=== PATIENT | male | born 1960 | race Caucasian/White ===

== ENCOUNTER → 2025-06-21 07:53 | Outpatient (REF) | payer OTHER, SELFPAY | LOC: RAD 07:53 | PROVIDERS: ATTENDING PHYSICIAN Family Medicine | DX: Z85.72 Personal history of non-Hodgkin lymphomas (principal); R10.9 Unspecified abdominal pain | CPT/HCPCS: 74177; Q9967 ==

== ENCOUNTER 2025-06-22 12:42 | Inpatient (IN) | payer OTHER, SELFPAY ==
[2025-06-22 10:05] VITALS: BP 160/79
--- NOTE | 2025-06-22 11:12 | ED.GENMED ---
History of Present Illness
<Genia Sharma PA-C - Last Filed: 06/22/25 14:20>
General
Chief Complaint: Abdominal Pain
Source: patient
Exam Limitations: none
Time Seen by Provider: 06/22/25 10:53
Nursing documentation reviewed up to this point in time: agreed with
History of Present Illness
History of Present Illness:
Patient is a 64-year-old male who presents to the emergency department with abnormal CT scan following 2 weeks of abdominal pain. Patient states he initially began with vague abdominal pain as well as low-grade fevers a few weeks ago. He was seen
by his primary care physician at that time and started on a 10-day course of amoxicillin, which he completed yesterday. Symptoms for the most part have improved however he does still have some vague abdominal discomfort.
Given persistent pain�his primary care ordered a CT scan of his abdomen which revealed diverticulitis and abscess. He was sent to the emergency department for further evaluation.
Patient denies any recent fevers. He still has some mild discomfort across his lower abdomen. He has not had any nausea, vomiting, diarrhea. No urinary symptoms.
No drug allergies.
Review of Systems
<Genia Sharma PA-C - Last Filed: 06/22/25 14:20>
Review of Systems
Allergies reviewed?: Yes
All Other Systems: ROS reviewed and negative except as documented in HPI and ROS
Phy Exam
<Genia Sharma PA-C - Last Filed: 06/22/25 14:20>
Physical Exam
Physical Exam:
Vitals: Hypertensive vital signs stable. Afebrile
General: Patient is well appearing, no acute distress
Skin: Warm and dry, no rashes or lesions
Head: Normocephalic, atraumatic
Eyes: Sclera nonicteric.
Throat: Protecting airway
Neck: Normal ROM, no cervical spine tenderness, no meningismus
Cardiac: Regular rate and rhythm, no murmurs.
Pulm: Normal respiratory effort, no wheezes, rales, rhonchi heard on exam
.
Abdomen: Abdomen soft. Mild tenderness across lower abdomen. No rebound tenderness or guarding
Extremities: No evidence of cyanosis or edema
Neuro: AAOx3. Grossly intact.
Psychiatric: Normal affect.
Course
<Genia Sharma PA-C - Last Filed: 06/22/25 14:20>
Orders/Labs/Results
Orders:
Orders
06/22/25 11:25
Complete Blood Count/With Diff Urgent
Comprehensive Metabolic Panel Urgent
Lactic Acid Q4H
Comment: CANCEL 2nd LACTIC ACID IF 1st LACTIC ACID IS LESS THAN 2
06/22/25 11:50
Piperacillin/Tazo 3.375 Gram [Zosyn] 3.375 gram in 50 ml IV NOW
06/22/25 12:26
Admit/Transfer Patient As Directed
Co-Sign Provider:
Level of Care: Inpatient admission
Assign to:: Medical/Surgical
Physician / Group: htay
Diagnosis: Acute diverticulitis of sigmoid colon complicated by small abscess.
Reason for Hospitalization: Acute diverticulitis of sigmoid colon complicated by small abscess.
Expected length of stay greater than two midnights?: Yes
ELOS- Estimated Length of Stay in days: 3
I certify the patient meets the requirements for IP care: Yes
06/22/25 12:27
Code Status As Directed
Resuscitation Status: Full Code
Abnormal Lab Results
06/22/25
11:25
RBC 4.35 L 10^6/uL
(4.70-6.10)
Hgb 12.9 L g/dL
(13.0-18.0)
Hct 38.4 L %
(39.0-52.0)
Abs Immat Gran (auto) 0.1 H 10^3/uL
(0-0.05)
Absolute Neuts (auto) 8.4 H 10^3/uL
(1.4-6.5)
Absolute Lymphs (auto) 1.1 L 10^3/uL
(1.2-3.4)
Absolute Monos (auto) 0.8 H 10^3/uL
(0.1-0.6)
Neutrophils % 79.9 H %
(42.2-75.2)
Lymphocytes % 10.5 L %
(20.5-51.1)
Lactic Acid 0.6 L mmol/L
(0.7-2.0)
06/22/25 11:25
06/22/25 11:25
Vital Signs
Initial and Last Documented VS:
Initial Vital Signs
Temp Pulse Resp BP Pulse Ox
99.0 F 82 16 160/79 98
06/22/25 10:05 06/22/25 10:05 06/22/25 10:05 06/22/25 10:05 06/22/25 10:05
Last Documented Vital Signs
Temp Pulse Resp BP Pulse Ox
99.0 F 82 16 133/66 99
06/22/25 10:05 06/22/25 10:05 06/22/25 10:05 06/22/25 13:00 06/22/25 13:15
Xavierlt;Truong Peguero, DO - Last Filed: 06/22/25 12:55>
Orders/Labs/Results
Orders:
Orders
06/22/25 11:25
Complete Blood Count/With Diff Urgent
Comprehensive Metabolic Panel Urgent
Lactic Acid Q4H
Comment: CANCEL 2nd LACTIC ACID IF 1st LACTIC ACID IS LESS THAN 2
06/22/25 11:50
Piperacillin/Tazo 3.375 Gram [Zosyn] 3.375 gram in 50 ml IV NOW
06/22/25 12:26
Admit/Transfer Patient As Directed
Co-Sign Provider:
Level of Care: Inpatient admission
Assign to:: Medical/Surgical
Physician / Group: htay
Diagnosis: Acute diverticulitis of sigmoid colon complicated by small abscess.
Reason for Hospitalization: Acute diverticulitis of sigmoid colon complicated by small abscess.
Expected length of stay greater than two midnights?: Yes
ELOS- Estimated Length of Stay in days: 3
I certify the patient meets the requirements for IP care: Yes
06/22/25 12:27
Code Status As Directed
Resuscitation Status: Full Code
Abnormal Lab Results
06/22/25
11:25
RBC 4.35 L 10^6/uL
(4.70-6.10)
Hgb 12.9 L g/dL
(13.0-18.0)
Hct 38.4 L %
(39.0-52.0)
Abs Immat Gran (auto) 0.1 H 10^3/uL
(0-0.05)
Absolute Neuts (auto) 8.4 H 10^3/uL
(1.4-6.5)
Absolute Lymphs (auto) 1.1 L 10^3/uL
(1.2-3.4)
Absolute Monos (auto) 0.8 H 10^3/uL
(0.1-0.6)
Neutrophils % 79.9 H %
(42.2-75.2)
Lymphocytes % 10.5 L %
(20.5-51.1)
Lactic Acid 0.6 L mmol/L
(0.7-2.0)
06/22/25 11:25
06/22/25 11:25
Vital Signs
Initial and Last Documented VS:
Initial Vital Signs
Temp Pulse Resp BP Pulse Ox
99.0 F 82 16 160/79 98
06/22/25 10:05 06/22/25 10:05 06/22/25 10:05 06/22/25 10:05 06/22/25 10:05
Last Documented Vital Signs
Temp Pulse Resp BP Pulse Ox
99.0 F 82 16 133/66 99
06/22/25 10:05 06/22/25 10:05 06/22/25 10:05 06/22/25 13:00 06/22/25 13:15
<Genia Sharma PA-C - Last Filed: 06/22/25 14:20>
MDM/Problems Addressed
Differential Diagnosis Includes:
Not limited to: Acute diverticulitis, bowel perforation, intra-abdominal abscess, etc.
MDM/Problems Addressed:
64-year-old male with acute sigmoid diverticulitis complicated by small abscess. Patient with approximately 2 weeks of lower abdominal discomfort s/p 10-day course of oral amoxicillin. Patient with persistent mild abdominal pain, no associated
fever or vomiting. Patient has stable vital signs and is afebrile on arrival to ED. Patient overall very well-appearing, nontoxic.
Labs obtained in ED without acute findings. No leukocytosis. Chemistry unremarkable. Lactic acid normal.
I did review CT scan which was performed outpatient yesterday which reveals acute diverticulitis of sigmoid colon complicated by small abscess that is not amenable to drainage. Given evidence of acute complicated diverticulitis not responding to
oral antibiotics outpatient�patient will require admission for IV antibiotics. Zosyn given in ED. Patient accepted to hospital service in stable condition. Colorectal surgery aware.
Chronic conditions affecting care:
N/A
Acute Exacerbation and/or Progression of Chronic Illness:
N/A
<Genia Sharma PA-C - Last Filed: 06/22/25 14:20>
*Pulse Oximetry
SaO2: 98
Oxygen Mode of Delivery: Room air
Patient hypoxic: no
*EKG
Interpreted by ED Provider?: NA
*Chest Pain Coordinator Interpretation
Rate: Chest Pain Coordinator- N/A
*Critical Care Note
Total Time (30-74mins, 75-104mins- exclusive of procedures): Not Applicable
Data Reviewed
Review of Other/Old Records Reveals: Radiology Studies (Outpatient CT abdomen/pelvis which reveals sigmoid diverticulitis complicated by small abscess)
<Genia Sharma PA-C - Last Filed: 06/22/25 14:20>
Patient Management
Discussion with other providers: Hospitalist and [facility] Examiner (Case discussed w/ colorectal surgery)
Escalation/DeEscalation of care consider admission/obs:
Admit for IV abx
ED Attending Note
<Genia Sharma PA-C - Last Filed: 06/22/25 14:20>
-
Portions of this chart may have been created with voice recognition software.� Occasional wrong word or��sound alike� substitutions may have occurred due to the inherent limitations of voice recognition software.
<Truong Peguero DO - Last Filed: 06/22/25 12:55>
ED Attending Note
Patient seen and examined by attending physician: Yes
ED Attending Note:
I reviewed and agree with history and treatment plan by Genia Sharma PA-C. My exam revealed 63-year-old male in no acute distress, afebrile. CT abdomen pelvis showing sigmoid diverticulitis with small abscess not amenable to drainage. IV
Zosyn given. Admit to hospitalist.
Discharge Plan
Departure
Patient Disposition: Admit
Date of Disposition: 06/22/25
Time of Disposition: 12:04
Presentation/result/management discussed w/ accepting MD/DO: Hospitalist
Discharge Problem:
Diverticulitis of intestine with abscess
Interventions
Interventions:
*Risk Screen - Suicide Last Done: 06/22/25 10:05
*General Assessment Last Done: 06/22/25 11:37
*Neglect/Abuse Screening Last Done: 06/22/25 10:05
*ED- Fall Risk Assessment Last Done: 06/22/25 11:37
*ED COVID-19 Vaccine History Last Done: 06/22/25 11:05
BR-Cwilyj-Ptwbwclbea Assessment Last Done: 06/22/25 11:37
[2025-06-22 11:29] VITALS: BMI 29.6
[2025-06-22 11:33] LABS: Hematocrit 38.4 % (39.0-52.0); Hemoglobin 12.9 g/dL (13.0-18.0); Mean Corp Hgb Conc. 33.6 g/dL (33.0-37.0); Mean Corpuscular Volume 88.3 fL (80.0-94.0); Nucleated Red Blood Cells % 0 % (-); Platelet Count 345 10^3/uL (130-400); Red Cell Dist. Width 12.8 % (11.5-14.5)
[2025-06-22 12:00] VITALS: BP 142/72
[2025-06-22 12:01] LABS: ALT (SGPT) 18 U/L (0-50); AST (SGOT) 25 U/L (17-59); Albumin 3.8 g/dl (3.5-5.0); Alkaline Phosphatase 58 U/L (38-126); Blood Urea Nitrogen 14 mg/dl (9-20); Calcium 9.1 mg/dl (8.4-10.2); Carbon Dioxide 27 mmol/L (22-30); Chloride 104 mmol/L (98-107); Estimated Creatinine Clearance 75 ml/min; Glucose 98 mg/dl (70-99); Potassium 4.5 mmol/L (3.5-5.1); Sodium 136 mmol/L (135-145); Total Protein 7.0 g/dl (6.3-8.2); eGFR > 60.00
[2025-06-22] MEDS: ZOSYN 50 IV ×2 (12:10→17:44)
--- NOTE | 2025-06-22 12:13 | HPS.HSE ---
Family Physician
-
Family Physician: Ladarius Mae
Chief Complaint
-
abnormal OP abdominal CT
History of Present Illness
HPI
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
- somewhat vague abdominal pain as well as low-grade fevers a few weeks ago.
- seen by his primary care physician at that time and started on a 10-day course of amoxicillin, which he completed yesterday. - - Symptoms for the most part have improved however he does still have some vague abdominal discomfort.
- primary care ordered a CT scan of his abdomen/pelvis which resulted today showing possible evidence of abscess and he was sent to the emergency department for further evaluation.
ROS
- denies any recent fevers.
- not had any nausea, vomiting, diarrhea.
Medical History
Past Medical History
Past Medical History: Reports None and Cancer (Remote HX NHL, s/p chemo and XRT at [place] - free status for 13 yrs )
Past Surgical History: Reports None
Social History
Tobacco: Non-smoker
Alcohol: None
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
Family History
Family History: Other (Diverticulitis in parents and siblings )
Allergies / Home Medications
Allergies reflects when Allergies were last updated in [employer].
Home Medications with original date entered in [employer]
Allergy/Medication List:
Not on any prescription meds
If medication reconciliation has not been performed, why?: Medication List N/A
Review of Systems
-
Constitutional: Reports No Symptoms
EENT: Reports No Symptoms
Respiratory: Reports No Symptoms
Cardiac: Reports No Symptoms
Abdomen/GI: Reports See HPI and Abdominal Pain; Denies Nausea, Vomiting or Diarrhea
: Reports No Symptoms
Musculoskeletal: Reports No Symptoms
Skin: Reports No Symptoms
Neurological: Reports No Symptoms
Endocrine: Reports No Symptoms
Hematologic/Lymphatic: Reports No Symptoms
Psych: Reports No Symptoms
Physical Exam
Vital Signs
Vital Signs
Temp Pulse Resp BP Pulse Ox
99.0 F 82 16 160/79 97
06/22/25 10:05 06/22/25 10:05 06/22/25 10:05 06/22/25 10:06/22/25 11:37
Physical Exam
General: Well Developed, Well Nourished and No Apparent Distress
HEENT: NormoCephalic, Moist mucous membranes and Atraumatic
Respiratory: Clear
Cardiac: S1/S2 and Regular Rhythm; No Murmur or Rub
GI: Soft, Non Distended, Normal Bowel Sounds and Tender (soft. Mild tenderness across lower abdomen. No rebound tenderness or guarding); No Organomegaly
Rectal: Deferred by Provider
Musculoskeletal: No Clubbing, No Cyanosis and No Edema
Skin: No Rash
Neuro: Nonfocal/grossly intact
Laboratory Results
-
06/22/25 11:25
06/22/25 11:25
Laboratory Results
Lactic Acid Cancelled 06/22/25 15:15
Total Bilirubin 0.5 mg/dl (0.2-1.3) 06/22/25 11:25
AST 25 U/L (17-59) 06/22/25 11:25
ALT 18 U/L (0-50) 06/22/25 11:25
Alkaline Phosphatase 58 U/L (38-126) 06/22/25 11:25
Data Reviewed
-
CT Scan: Report Reviewed by me
Lab Data: Labs Reviewed by me
Impression/Plan
-
Vital Signs
Temp Pulse Resp BP Pulse Ox
99.0 F 82 16 160/79 97
06/22/25 10:05 06/22/25 10:05 06/22/25 10:05 06/22/25 10:05 06/22/25 11:37
Relevant Data
06/22/25
11:25
WBC 10.4
Hgb 12.9 L
Plt Count 345
Creatinine 1.1
eGFR > 60.00
Lactic Acid 0.[address] Abd/pel W Iv And Oral Contr
1. Findings compatible with acute diverticulitis within the sigmoid colon, complicated by development of a small abscess measuring approximately 3.5 x 2.4 x 4.3 cm. This collection is not amenable to percutaneous drainage.
2. Additional findings above.
No prior DH or hospitalist admission:
ASSESSMENT & PLAN
Complicated acute diverticulitis of sigmoid colon complicated by small abscess - first episode
- Failed OP PO Augmentin for 10 days - completed yesterday
- Outpatient CT performed yesterday
- VSS, afebrile.
- Unremarkable LA
- NPO and IVF
- Empiric IV Zosyn
- PRN analgesia and antiemetics
- Consulted Colorectal, Dr. Pan by ER attd
Remote HX NHL, s/p chemo and XRT @ [place]
- free status for 13 yrs
DVT Px: SCD
Code: Full
IP MS
[2025-06-22 13:00] VITALS: BP 133/66
[2025-06-22 14:22] VITALS: BP 142/67; BMI 29.1
[2025-06-22] MEDS: NSS 1000 IV (15:01)
--- NOTE | 2025-06-22 16:06 | CM ---
CM met with pt and spouse bedside
They reside at [address] [place] [address] Dr chu France- address corrected with admission
2SH with 2STE full flight to 2nd floor
Pt is independent with his ADLs, denies use of DMEs
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
Denies financial insecurities
PCP- Jarvis Li
Rx- Nerissa
Discharge Disposition- anticipate home, no needs
[2025-06-22 16:21] VITALS: BP 152/76
[2025-06-22 23:00] VITALS: BP 152/70
[2025-06-23] MEDS: ZOSYN 50 IV ×5 (00:06→22:56)
[2025-06-23] MEDS: NSS 1000 IV ×2 (04:16→17:35)
[2025-06-23 07:02] LABS: Hematocrit 38.6 % (39.0-52.0); Hemoglobin 13.3 g/dL (13.0-18.0); Mean Corp Hgb Conc. 34.5 g/dL (33.0-37.0); Mean Corpuscular Volume 88.9 fL (80.0-94.0); Platelet Count 332 10^3/uL (130-400); Red Cell Dist. Width 12.8 % (11.5-14.5)
[2025-06-23 07:23] LABS: Blood Urea Nitrogen 13 mg/dl (9-20); Calcium 8.8 mg/dl (8.4-10.2); Carbon Dioxide 26 mmol/L (22-30); Chloride 106 mmol/L (98-107); Estimated Creatinine Clearance 92 ml/min; Glucose 89 mg/dl (70-99); Potassium 4.3 mmol/L (3.5-5.1); Sodium 137 mmol/L (135-145); eGFR > 60.00
[2025-06-23 08:15] VITALS: BP 148/77
[2025-06-23] MEDS: TYLENOL 1000 MG PO ×2 (11:43→22:55)
--- NOTE | 2025-06-23 13:06 | W.PN.HOSP.TC ---
Today's Communication/Plan
-
adv to [facility]D
abx
Await surg recs
Assessment / Plan
Assessment / Plan
Physical Exam
General: Well Developed, Well Nourished and No Apparent Distress
HEENT: NormoCephalic, Moist mucous membranes and Atraumatic
Respiratory: Clear
Cardiac: S1/S2 and Regular Rhythm; No Murmur or Rub
GI: Soft, Non Distended, Normal Bowel Sounds and nontender; No rebound tenderness or guarding); No Organomegaly
Rectal: Deferred by Provider
Musculoskeletal: No Clubbing, No Cyanosis and No Edema
Skin: No Rash
Neuro: Nonfocal/grossly intact
ASSESSMENT & PLAN
Complicated acute diverticulitis of sigmoid colon complicated by small abscess - first episode
-As per CT not amenable to drainage
- Failed OP PO Augmentin for 10 days - completed yesterday
- VSS, afebrile.
- IVF
- As asymptomatic - adv to CLD
- Empiric IV Zosyn
- PRN analgesia and antiemetics
- Consulted Colorectal, Dr. Pan by ER attd - await recs although anticipate medical management
Remote HX NHL, s/p chemo and XRT @ [place]
- disease free status for 13 yrs
DVT Px: SCD
Code: Full
Anticipated Discharge: 24 - 48 hours
Subjective/Interval History
-
Date of Service: June 23, 2025
Patient has no abdominal pain, hungry
Objective Data
-
Labs:
Laboratory Results
06/23/25
06:08
WBC 8.4
Hgb 13.3
Hct 38.6 L
Plt Count 332
Sodium 137
Potassium 4.3
Chloride 106
Carbon Dioxide 26
BUN 13
Creatinine 0.9
Glucose 89
Calcium 8.8
Vital Signs:
Vital Signs
Temp Pulse Resp BP Pulse Ox
97.8 F 62 16 148/77 98
06/23/25 08:15 06/23/25 08:15 06/23/25 08:15 06/23/25 08:15 06/23/25 08:15
I&O
06/22/25 06/23/25 06/24/25
06:59 06:59 06:59
Intake Total 1080 / 1080
Balance 1080 / 1080
Review of Systems
-
History Source: Patient
All other systems: Not reviewed unless documented
Data Reviewed
-
CT Scan: Report Reviewed by me
Labs: Labs Reviewed by me
--- NOTE | 2025-06-23 15:15 | CON.CRS ---
Addendum entered and electronically signed by Jose G Pan MD 06/23/25 18:18:
I saw and examined the patient.
The High School Science Tutor's note was reviewed and I agree with the note.
Comment: Pain free, benign exam, CT with pericolonic abscess at distal sigmoid, plan for IV abx, cld for now
Addendum entered and electronically signed by REGAN Moran 06/23/25 15:27:
-
Original Note:
Consultation
-
Date/Time Consultation Performed: 06/23/25 1430
Medical History
-
Chief Complaint: abnormal outpatient imaging
History of Present Illness:
This is a 64 yo male with a h/o HS NHL s/p chemo and xrt remotely who was recently treated with a 10 day course of augmenting for diverticulitis by his PCP which he completed on 06/21/25. He continued with some vague abdominal discomfort and
outpatient Ct imaging was obtained which demonstrated sigmoid diverticulitis complicated by abscess formation. He was called by his doctor and it was recommended he present through the ED which he did yesterday. He was started on IV abx and kept NPO
for bowel rest until lunch time today when he was initiated on clears. He notes no current abdominal pain and is nontender on exam. He denies fevers or chills. His last colonoscopy was in 2019 with purulent discharge noted from a diverticula at that
time for which he was treated with Levaquin/Flagyl. He had a polypectomy and reports he is due for colonoscopy this year.
Past Medical History
Past Medical History: Cancer (HS NHL s/p chemo/xrt ) and Diverticulitis
Past Surgical History: None
Social History
Tobacco: Non-Smoker
Alcohol: None
Personal:
Living: With Family
Family History
Family History: Reviewed & Not Pertinent
Allergies / Home Medications
Allergy/AdvReac Type Severity Reaction Status Date / Time
No Known Allergies Allergy Verified 06/22/25 10:10
Review of Systems
-
History Source: Patient and Family
All other systems: Negative unless noted
A 10 point review of systems was completed, and was negative except as per HPI.
Physical Exam
Vital Signs
Temp 97.8 F 06/23/25 08:15
Pulse 62 06/23/25 08:15
Resp Rate 16 06/23/25 08:15
Blood pressure 148/77 06/23/25 08:15
SaO2 98 06/23/25 08:15
06/22/25 06/23/25 06/24/25
06:59 06:59 06:59
Actual Weight 97.386 kg
Body Mass Index (BMI) 29.1
Lab Results / Allergies
06/23/25 06:08
06/23/25 06:08
WBC 8.4 10^3/uL (4.8-10.8) 06/23/25 06:08
Hgb 13.3 g/dL (13.0-18.0) 06/23/25 06:08
Hct 38.6 % (39.0-52.0) L 06/23/25 06:08
Plt Count 332 10^3/uL (130-400) 06/23/25 06:08
Abs Immat Gran (auto) 0.1 10^3/uL (0-0.05) H 06/22/25 11:25
Neutrophils % 79.9 % (42.2-75.2) H 06/22/25 11:25
Allergy/AdvReac Type Severity Reaction Status Date / Time
No Known Allergies Allergy Verified 06/22/25 10:10
Physical Exam
General: Well Developed and Well Nourished
HEENT: Normocephalic and Moist Mucous Membranes
Respiratory: Clear and Non Labored Respirations
GI: Soft, Non Tender and Non Distended
Neuro: Awake, Alert and AO x 3
Psych: Calm
Data Reviewed
-
CT Scan: Image Personally Visualized and interpreted, Report Reviewed by me, Discussed with Physician, Discussed with Nurse, Discussed with Patient and Discussed with Family
Labs: Labs Reviewed by me, Discussed with Physician, Discussed with Nurse, Discussed with Patient and Discussed with Family
Old Records: Reviewed
Assessment / Plan
-
64 yo male with h/o colonoscopy in 2019, treated with abx after study d/t purulence from diverticular pocket noted during the procedure who is s/p oral abx therapy [id number] as an op for diverticulitis who presents for acute sigmoid diverticulitis
with 3.5 x 2.4 x 4.3 cm abscess along the superior and posterior to the sigmoid noted on outpatient follow up imaging as pain persisted after abx. He has no leukocytosis or fevers. He has no active pain or tenderness. VSS.
Plan:
Ok for clear liquids
Continue IV ABX
Will add on CRP to today's labs and trend
Abscess location not amenable to IR drainage given location
Will need op follow up colonoscopy after resolution of this episode
Medical management as per primary team
No plans for emergent surgery at this time, will follow for continued improvement with abx and supportive measures
[2025-06-23 15:56] LABS: C-Reactive Protein 49.00 mg/L (0.0-10.00)
[2025-06-23 16:05] VITALS: BP 139/79
[2025-06-23 23:00] VITALS: BP 150/76
[2025-06-24] MEDS: ZOSYN 50 IV ×2 (05:19→11:55)
[2025-06-24] MEDS: NSS 1000 IV (05:20)
[2025-06-24 07:11] LABS: Hematocrit 41.0 % (39.0-52.0); Hemoglobin 14.0 g/dL (13.0-18.0); Mean Corp Hgb Conc. 34.1 g/dL (33.0-37.0); Mean Corpuscular Volume 89.1 fL (80.0-94.0); Platelet Count 350 10^3/uL (130-400); Red Cell Dist. Width 12.8 % (11.5-14.5)
[2025-06-24 07:30] LABS: ALT (SGPT) 15 U/L (0-50); AST (SGOT) 24 U/L (17-59); Albumin 3.6 g/dl (3.5-5.0); Alkaline Phosphatase 59 U/L (38-126); Blood Urea Nitrogen 11 mg/dl (9-20); Calcium 9.0 mg/dl (8.4-10.2); Carbon Dioxide 25 mmol/L (22-30); Chloride 106 mmol/L (98-107); Estimated Creatinine Clearance 83 ml/min; Glucose 90 mg/dl (70-99); Potassium 4.5 mmol/L (3.5-5.1); Sodium 138 mmol/L (135-145); Total Protein 6.8 g/dl (6.3-8.2); eGFR > 60.00
[2025-06-24 07:32] VITALS: BP 156/83
[2025-06-24 07:34] LABS: C-Reactive Protein 39.60 mg/L (0.0-10.00)
--- NOTE | 2025-06-24 10:43 | W.PN.CRS1 ---
Today's Communication / Plan
-
regular diet
outpatient abx
f/u in the office with Dr. Guerin as an outpatient
Assessment/Plan
-
64 yo male with h/o colonoscopy in 2019, treated with abx after study d/t purulence from diverticular pocket noted during the procedure who is s/p oral abx therapy [id number] as an op for diverticulitis who presents for acute sigmoid diverticulitis
with 3.5 x 2.4 x 4.3 cm abscess along the superior and posterior to the sigmoid noted on outpatient follow up imaging as pain persisted after abx. He has no leukocytosis or fevers. He has no active pain or tenderness. VSS.
Plan:
-Advance to a regular diet
-Continue IV ABX, convert to po as an outpatient
-Abscess location not amenable to IR drainage given location
-Will need op follow up colonoscopy after resolution of this episode
-Medical management as per primary team
-No plans for emergent surgery at this time
-Follow up with Dr. Guerin in the office in a few weeks to discuss colonoscopy/diverticulitis
-Okay for d/c later today from our perspective if tolerates a regular diet.
Subjective Data
Subjective Data
Date of Service: June 24, 2025
Patient states he feels well today. He denies pain. Denies nasuea or vomiting. He is having bowel movements.
Objective Data
-
Vital Signs
Temp Pulse Resp BP Pulse Ox
97.8 F 57 14 156/83 98
06/24/25 07:32 06/24/25 07:32 06/24/25 07:32 06/24/25 07:32 06/24/25 07:32
Intake & Output
06/23/25 06/24/25 06/25/25
06:59 06:59 06:59
Intake Total 1080 / 1080 2520 / 2520
Balance 1080 / 1080 2520 / 2520
Intake:
Oral fluids 1440 / 1440
IV fluids (Total) 980 / 980 980 / 980
IV piggybacks 100 / 100 100 / 100
Other:
Number of approximated MODERATE 3 4
amounts of urine
Lab Results
06/24/25 06:24
06/24/25 06:24
Physical Exam
-
General: No Acute Distress and AOx3
Abdomen: Soft, Non Distended and Non Tender
Skin: Warm and Dry
--- NOTE | 2025-06-24 14:45 | W.DS.TRANS ---
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
-
Discharge Instructions:
Discharge Diagnosis/Procedures Acute diverticulitis
Diet Low Residue
Additional Diets low residue for 3 days then high fiber
Activity No restrictions
Driving Restrictions As prior to admission
Bathing Restrictions None
Instructions: Diverticulitis (DC)
Stand-Alone Forms:
Changes to Home Medications: No
Discharge Medications:
DC Medications w/original date entered in [employer]
amoxicillin 875 mg-potassium clavulanate 125 mg tablet 1 tab PO BID #20 tabs 06/24/25
Home Medication Changes
Pending Results: No
[2025-06-24 14:49] VITALS: BP 148/80
--- NOTE | 2025-06-24 15:14 | CM ---
chart reviewed
patient stable for discharge today
IMM n/a
PLAN: Home, no needs
to transport
--- NOTE | 2025-06-24 15:36 | W.PN.HOSP.TC ---
Today's Communication/Plan
-
Discharge
Assessment / Plan
Assessment / Plan
Gen-AAOx3, NAD
HEENT-NC, AT, anicteric, clear oral mm
Neck-supple
CV-reg, no M, +S1/S2
Lungs-clear B/L
Abd-soft, NT, ND
Ext-no edema
Musculoskeletal-no cyanosis, clubbing
Skin-warm and dry
Neuro-grossly non-focal
Psych-calm, cooperative
Complicated acute diverticulitis of sigmoid colon with small abscess - first episode
-As per CT not amenable to drainage
- Did not completely resolve with a course of Augmentin prior to admission
- VSS, afebrile.
- IVF
- Tolerating solids, okay to discharge as per colorectal surgery. Outpatient follow-up. Convert to Augmentin on discharge. Discussed with patient and .
Remote HX NHL, s/p chemo and XRT @ [place]
- disease free status for 13 yrs
DVT Px: SCD
Code: Full
Dispo -medically stable for discharge today. Outpatient follow-up.
32 minutes spent in discharge process.
Anticipated Discharge: Today
Subjective/Interval History
-
Date of Service: June 24, 2025
Patient seen and examined. Feeling much better, no complaints. Eager to go home.
Objective Data
-
Labs:
Laboratory Results
06/24/25
06:24
WBC 7.7
Hgb 14.0
Hct 41.0
Plt Count 350
Sodium 138
Potassium 4.5
Chloride 106
Carbon Dioxide 25
BUN 11
Creatinine 1.0
Glucose 90
Calcium 9.0
Total Bilirubin 0.6
AST 24
ALT 15
Alkaline Phosphatase 59
Vital Signs:
Vital Signs
Temp Pulse Resp BP Pulse Ox
98.6 F 60 18 148/80 99
06/24/25 14:49 06/24/25 14:49 06/24/25 14:49 06/24/25 14:49 06/24/25 14:49
I&O
06/23/25 06/24/25 06/25/25
06:59 06:59 06:59
Intake Total Sendoid / 1080 2520 / 2520
Balance Sendoid / 1080 2520 / 2520
Review of Systems
-
History Source: Patient
All other systems: Reviewed and negative
== END 2025-06-24 15:11 | disposition home or self-care (01) | DRG 392 ==
LOC: 3 WEST ACU 12:42
PROVIDERS: Internal Medicine; Physician Assistant; Registered Nurse; ADMITTING PHYSICIAN Internal Medicine; ATTENDING PHYSICIAN Hospitalist; EMERGENCY PHYSICIAN Emergency Medicine; FAMILY PHYSICIAN Family Medicine; OTHER PHYSICIAN Surgery
DX: K57.20 Diverticulitis of large intestine with perforation and abscess without bleeding (principal); Z92.21 Personal history of antineoplastic chemotherapy; Z92.3 Personal history of irradiation; Z85.72 Personal history of non-Hodgkin lymphomas
CPT/HCPCS: 80048; 80053; 83605; 85025; 85027; 86140; 96365; 99284

== ENCOUNTER 2025-07-04 20:48 | Inpatient (IN) | payer OTHER, SELFPAY ==
[2025-07-04 14:58] VITALS: BP 167/86
[2025-07-04 15:36] LABS: Hematocrit 42.4 % (39.0-52.0); Hemoglobin 14.2 g/dL (13.0-18.0); Mean Corp Hgb Conc. 33.5 g/dL (33.0-37.0); Mean Corpuscular Volume 87.6 fL (80.0-94.0); Nucleated Red Blood Cells % 0 % (-); Platelet Count 341 10^3/uL (130-400); Red Cell Dist. Width 12.7 % (11.5-14.5)
[2025-07-04 15:42] LABS: ALT (SGPT) 22 U/L (0-50); AST (SGOT) 27 U/L (17-59); Albumin 4.0 g/dl (3.5-5.0); Alkaline Phosphatase 67 U/L (38-126); Blood Urea Nitrogen 15 mg/dl (9-20); Calcium 9.3 mg/dl (8.4-10.2); Carbon Dioxide 28 mmol/L (22-30); Chloride 101 mmol/L (98-107); Glucose 119 mg/dl (70-99); Lipase 19 U/L (23-300); Potassium 4.1 mmol/L (3.5-5.1); Sodium 134 mmol/L (135-145); Total Protein 7.3 g/dl (6.3-8.2); eGFR > 60.00
[2025-07-04 16:47] VITALS: BMI 28.7
[2025-07-04] MEDS: NSS 1000 IV ×2 (16:52→21:49)
[2025-07-04 16:58] VITALS: BP 122/89
--- NOTE | 2025-07-04 17:22 | ED.GENMED ---
History of Present Illness
<Omar Nagy PA-C - Last Filed: 07/05/25 09:38>
General
Chief Complaint: Abdominal Symptoms
Source: patient
Time Seen by Provider: 07/04/25 16:32
History of Present Illness
History of Present Illness:
64-year-old male recently admitted to this facility with diverticulitis, discharged home on oral antibiotics presenting back to the emergency department due to increased pain within his lower abdomen, fever, chills and rigors that been ongoing over
the last 24 hours despite patient continuing the oral antibiotics. He denies any nausea or vomiting, bowel changes or urinary symptoms. Patient did take Tylenol at 11 AM with some relief of his chills as well as the pain, currently declining
anything for pain.
Past History
<Omar Nagy PA-C - Last Filed: 07/05/25 09:38>
Past History
ED Past Medical History: None
ED Past Surgical History: None
Social History
Tobacco: Non-smoker
Alcohol: None
Drug: None
Personal:
Review of Systems
<Omar Nagy PA-C - Last Filed: 07/05/25 09:38>
Review of Systems
All Other Systems: ROS reviewed and negative except as documented in HPI and ROS
Phy Exam
<Omar Nagy PA-C - Last Filed: 07/05/25 09:38>
Physical Exam
Physical Exam:
GENERAL: Alert , in no apparent distress
EYE: clear conjunctiva b/l
HEAD: NCAT
ENT: mmm.
CARDIAC: Regular rate and rhythm .
LUNGS: Clear breath sounds bilaterally, no acute respiratory distress, no wheezes/rales/rhonchi
ABDOMEN: Soft, mild tenderness across the lower abdomen, no r/g, no cvat
NEUROLOGICAL: Alert and oriented
SKIN: Warm and dry, skin intact.
MUSCULOSKELETAL: well perfused.
PSYCH: Normal and appropriate interaction.
Scores
<Omar Nagy PA-C - Last Filed: 07/05/25 09:38>
Heart Failure Risk
Heart Failure Risk Score: Not Applicable
Heart Score for Chest Pain Patients
STEMI patient?: Not applicable
Withdrawal Assessment of Alcohol
Withdrawal Assessment Completed?: Not applicable
Course
<Omar Nagy PA-C - Last Filed: 07/05/25 09:38>
Orders/Labs/Results
Orders:
Orders
07/04/25 Breakfast
NPO
Allow oral meds: Yes
Allow clear liquids: Sips of Clears
NPO with Ice Chips: Yes
07/04/25 15:08
Complete Blood Count/With Diff Urgent
Comprehensive Metabolic Panel Urgent
Lipase Urgent
07/04/25 16:33
0.9% Sodium Chloride 1000 ml [Nss] 1,000 ml IV BOLUS
07/04/25 16:50
Lactic Acid Q4H
Comment: CANCEL 2nd LACTIC ACID IF 1st LACTIC ACID IS LESS THAN 2
Blood Culture Q30M
CECELIA Source: Blood/Venous
Specimen Description:
Blood Culture Q30M
CECELIA Source: Blood/Venous
Specimen Description:
07/04/25 16:56
CT Abd/pelvis W Iv Cont Urgent
Comment:
Reason For Exam: recent diverticulitis with abscess, fevers, pain
07/04/25 19:08
Acetaminophen [Tylenol] 1,000 mg PO NOW STA
07/04/25 19:25
Piperacillin/Tazo 3.375 Gram [Zosyn] 3.375 gram in 50 ml IV NOW
07/04/25 19:27
LevoFLOXacin 750 MG/150 ML [Levaquin] 750 mg in 150 ml IV NOW
MetroNIDAZOLE 500 MG/100 ML [Flagyl 500 mg] 100 ml IV NOW
07/04/25 19:30
Heparin 97800 Units/250 ml 25,000 units in 250 ml IV PER PROTOCOL
Weight to be used for heparin protocol in kilograms (kg):: 96
Protocol:: DVT/PE
PTT Goal Range to be used:: PTT 73 to 111 seconds
Order type:: Initial
INITIAL Infusion Dose (UNITS/KG/hr) & then follow protocol:: 18 units/kg/hr
Infusion Dose in UNITS/hr & then follow protocol (UNITS/hr):: 1,700
INFUSION RATE in mL/hr & then follow protocol (mL/hr):: 17
For DVT/PE algorithm, re-bolus for low PTT?: No
PTT less than or equal to 64 seconds:: No Re-bolus. Increase by 400 units/hr (+ 4mL/hr)
PTT 64.1 to 72.9 seconds:: No Re-bolus. Increase by 200 units/hr (+ 2mL/hr)
PTT 73 to 111 seconds:: Target Range. No change in rate.
PTT 111.1 to 130.9 seconds:: Decrease rate by 200 units/hr (- 2 mL/hr)
PTT 131 to 199.9 seconds:: HOLD for 1 hr. Then decrease by 300 units/hr (- 3mL/hr)
PTT greater than or equal to 200 seconds:: HOLD for 2 hrs & Notify Provider. Then decrease by 400 units/hr
(- 4mL/hr)
Lab follow-up:: Each change, PTT q6h until 2 consecutive are therapeutic. Then
PTT daily.
07/04/25 19:48
Admit/Transfer Patient As Directed
Co-Sign Provider:
Level of Care: Inpatient admission
Assign to:: Medical/Surgical
Physician / Group: Rakesh
Diagnosis: Diverticulitis
Reason for Hospitalization: IV abx
Expected length of stay greater than two midnights?: Yes
ELOS- Estimated Length of Stay in days: 3
I certify the patient meets the requirements for IP care: Yes
07/04/25 19:54
PRN Pain Medication Management As Directed
May give lesser potent ordered pain med per pt: Yes
preference::
Protocol:: Medication orders for pain may be administered in a
manner that supports deferring to patient preference
when the pt is:
- Requesting an ordered lesser potent pain medication.
Least to most potent pain medications are defined
as: acetaminophen < NSAID < tramadol < opioids
(morphine, oxycodone, hydromorphone).
- Requesting a lesser dose of the same medication IF
ORDERED.
- Requesting a less intrusive route of administration
if both routes are prescribed by the provider (PO <
IV).
07/04/25 19:55
Code Status As Directed
Resuscitation Status: Full Code
07/04/25 19:58
PTT Urgent
Comment: Obtain baseline before beginning heparin infusion if not already collected
07/04/25 21:00
0.9% Sodium Chloride 1000 ml [Nss] 1,000 ml IV 100 mls/hr
Acetaminophen [Tylenol] 650 mg PO Q4HPRN PRN
Ondansetron Injectable [Zofran] 4 mg IV Q6HPRN PRN
07/04/25 21:00
ColoRectal Surgery Consult Routine
Consulting Provider: Andrew Gannon
Was physician already notified: Yes
Heparin Protocol- PTT Orders As Directed
PTT per Heparin protocol: -Obtain CBC and baseline PTT - if not already collected.
-Obtain PTT 6 hours from start of infusion. Then, every 6 hours until 2 consecutive
PTT's are therapeutic. Then, PTT Daily.
-With each rate change, obtain PTT every 6 hours until 2 consecutive PTT's are
therapeutic. Then, PTT Daily.
Activity As Directed
Activity Level: Out of Bed-Early Mobility
With Assistance
I&O [Intake/ Output] As Directed
Frequency: q12h
Notify MD As Directed
Notify physician if: PTT is greater than or equal to 200.
Vital Signs As Directed
Frequency: Per unit guidelines
DX Deep Vein Thrombosis Video Routine
07/05/25 04:00
MetroNIDAZOLE 500 MG/100 ML [Flagyl 500 mg] 100 ml IV Q8H
07/05/25 04:09
Basic Metabolic Panel IN AM
Complete Blood Count/No Diff IN AM
07/05/25 18:00
Enoxaparin Sodium [Lovenox] 40 mg SC QPM
07/05/25 20:00
LevoFLOXacin 500 MG/100 ML [Levaquin] 500 mg in 100 ml IV Q24H
07/06/25 08:47
Complete Blood Count/No Diff Q2D
Comment: notify provider: Platelet count < 130,000 or decrease by 50% from baseline
Abnormal Lab Results
07/04/25 07/04/25
15:08 19:58
WBC 15.6 H 10^3/uL
(4.8-10.8)
Abs Immat Gran (auto) 0.1 H 10^3/uL
(0-0.05)
Absolute Neuts (auto) 13.0 H 10^3/uL
(1.4-6.5)
Absolute Lymphs (auto) 0.9 L 10^3/uL
(1.2-3.4)
Absolute Monos (auto) 1.6 H 10^3/uL
(0.1-0.6)
Neutrophils % 83.5 H %
(42.2-75.2)
Lymphocytes % 5.6 L %
(20.5-51.1)
Monocytes % 9.9 H %
(1.7-9.3)
APTT 41.1 H Sec
(23.4-35.0)
Sodium 134 L mmol/L
(135-145)
Glucose 119 H mg/dl
(70-99)
Lipase 19 L U/L
(23-300)
07/04/25 15:08
07/04/25 15:08
Vital Signs
Initial and Last Documented VS:
Initial Vital Signs
Temp Pulse Resp BP Pulse Ox
100.2 F 115 16 167/86 97
07/04/25 14:58 07/04/25 14:58 07/04/25 14:58 07/04/25 14:58 07/04/25 14:58
Last Documented Vital Signs
Temp Pulse Resp BP Pulse Ox
98.0 F 91 18 126/75 99
07/07/25 15:00 07/07/25 15:00 07/07/25 15:00 07/07/25 15:00 07/07/25 15:00
<Robert Carnes MD - Last Filed: 07/10/25 06:03>
Orders/Labs/Results
Orders:
Orders
07/04/25 Breakfast
NPO
Allow oral meds: Yes
Allow clear liquids: Sips of Clears
NPO with Ice Chips: Yes
07/04/25 15:08
Complete Blood Count/With Diff Urgent
Comprehensive Metabolic Panel Urgent
Lipase Urgent
07/04/25 16:33
0.9% Sodium Chloride 1000 ml [Nss] 1,000 ml IV BOLUS
07/04/25 16:50
Lactic Acid Q4H
Comment: CANCEL 2nd LACTIC ACID IF 1st LACTIC ACID IS LESS THAN 2
Blood Culture Q30M
CECELIA Source: Blood/Venous
Specimen Description:
Blood Culture Q30M
CECELIA Source: Blood/Venous
Specimen Description:
07/04/25 16:56
CT Abd/pelvis W Iv Cont Urgent
Comment:
Reason For Exam: recent diverticulitis with abscess, fevers, pain
07/04/25 19:08
Acetaminophen [Tylenol] 1,000 mg PO NOW STA
07/04/25 19:25
Piperacillin/Tazo 3.375 Gram [Zosyn] 3.375 gram in 50 ml IV NOW
07/04/25 19:27
LevoFLOXacin 750 MG/150 ML [Levaquin] 750 mg in 150 ml IV NOW
MetroNIDAZOLE 500 MG/100 ML [Flagyl 500 mg] 100 ml IV NOW
07/04/25 19:30
Heparin 33993 Units/250 ml 25,000 units in 250 ml IV PER PROTOCOL
Weight to be used for heparin protocol in kilograms (kg):: 96
Protocol:: DVT/PE
PTT Goal Range to be used:: PTT 73 to 111 seconds
Order type:: Initial
INITIAL Infusion Dose (UNITS/KG/hr) & then follow protocol:: 18 units/kg/hr
Infusion Dose in UNITS/hr & then follow protocol (UNITS/hr):: 1,700
INFUSION RATE in mL/hr & then follow protocol (mL/hr):: 17
For DVT/PE algorithm, re-bolus for low PTT?: No
PTT less than or equal to 64 seconds:: No Re-bolus. Increase by 400 units/hr (+ 4mL/hr)
PTT 64.1 to 72.9 seconds:: No Re-bolus. Increase by 200 units/hr (+ 2mL/hr)
PTT 73 to 111 seconds:: Target Range. No change in rate.
PTT 111.1 to 130.9 seconds:: Decrease rate by 200 units/hr (- 2 mL/hr)
PTT 131 to 199.9 seconds:: HOLD for 1 hr. Then decrease by 300 units/hr (- 3mL/hr)
PTT greater than or equal to 200 seconds:: HOLD for 2 hrs & Notify Provider. Then decrease by 400 units/hr
(- 4mL/hr)
Lab follow-up:: Each change, PTT q6h until 2 consecutive are therapeutic. Then
PTT daily.
07/04/25 19:48
Admit/Transfer Patient As Directed
Co-Sign Provider:
Level of Care: Inpatient admission
Assign to:: Medical/Surgical
Physician / Group: Rakesh
Diagnosis: Diverticulitis
Reason for Hospitalization: IV abx
Expected length of stay greater than two midnights?: Yes
ELOS- Estimated Length of Stay in days: 3
I certify the patient meets the requirements for IP care: Yes
07/04/25 19:54
PRN Pain Medication Management As Directed
May give lesser potent ordered pain med per pt: Yes
preference::
Protocol:: Medication orders for pain may be administered in a
manner that supports deferring to patient preference
when the pt is:
- Requesting an ordered lesser potent pain medication.
Least to most potent pain medications are defined
as: acetaminophen < NSAID < tramadol < opioids
(morphine, oxycodone, hydromorphone).
- Requesting a lesser dose of the same medication IF
ORDERED.
- Requesting a less intrusive route of administration
if both routes are prescribed by the provider (PO <
IV).
07/04/25 19:55
Code Status As Directed
Resuscitation Status: Full Code
07/04/25 19:58
PTT Urgent
Comment: Obtain baseline before beginning heparin infusion if not already collected
07/04/25 21:00
0.9% Sodium Chloride 1000 ml [Nss] 1,000 ml IV 100 mls/hr
Acetaminophen [Tylenol] 650 mg PO Q4HPRN PRN
Ondansetron Injectable [Zofran] 4 mg IV Q6HPRN PRN
07/04/25 21:00
ColoRectal Surgery Consult Routine
Consulting Provider: Andrew Gannon
Was physician already notified: Yes
Heparin Protocol- PTT Orders As Directed
PTT per Heparin protocol: -Obtain CBC and baseline PTT - if not already collected.
-Obtain PTT 6 hours from start of infusion. Then, every 6 hours until 2 consecutive
PTT's are therapeutic. Then, PTT Daily.
-With each rate change, obtain PTT every 6 hours until 2 consecutive PTT's are
therapeutic. Then, PTT Daily.
Activity As Directed
Activity Level: Out of Bed-Early Mobility
With Assistance
I&O [Intake/ Output] As Directed
Frequency: q12h
Notify MD As Directed
Notify physician if: PTT is greater than or equal to 200.
Vital Signs As Directed
Frequency: Per unit guidelines
DX Deep Vein Thrombosis Video Routine
07/05/25 04:00
MetroNIDAZOLE 500 MG/100 ML [Flagyl 500 mg] 100 ml IV Q8H
07/05/25 04:09
Basic Metabolic Panel IN AM
Complete Blood Count/No Diff IN AM
07/05/25 18:00
Enoxaparin Sodium [Lovenox] 40 mg SC QPM
07/05/25 20:00
LevoFLOXacin 500 MG/100 ML [Levaquin] 500 mg in 100 ml IV Q24H
07/06/25 08:47
Complete Blood Count/No Diff Q2D
Comment: notify provider: Platelet count < 130,000 or decrease by 50% from baseline
Abnormal Lab Results
07/04/25 07/04/25
15:08 19:58
WBC 15.6 H 10^3/uL
(4.8-10.8)
Abs Immat Gran (auto) 0.1 H 10^3/uL
(0-0.05)
Absolute Neuts (auto) 13.0 H 10^3/uL
(1.4-6.5)
Absolute Lymphs (auto) 0.9 L 10^3/uL
(1.2-3.4)
Absolute Monos (auto) 1.6 H 10^3/uL
(0.1-0.6)
Neutrophils % 83.5 H %
(42.2-75.2)
Lymphocytes % 5.6 L %
(20.5-51.1)
Monocytes % 9.9 H %
(1.7-9.3)
APTT 41.1 H Sec
(23.4-35.0)
Sodium 134 L mmol/L
(135-145)
Glucose 119 H mg/dl
(70-99)
Lipase 19 L U/L
(23-300)
07/04/25 15:08
07/04/25 15:08
Vital Signs
Initial and Last Documented VS:
Initial Vital Signs
Temp Pulse Resp BP Pulse Ox
100.2 F 115 16 167/86 97
07/04/25 14:58 07/04/25 14:58 07/04/25 14:58 07/04/25 14:58 07/04/25 14:58
Last Documented Vital Signs
Temp Pulse Resp BP Pulse Ox
98.0 F 91 18 126/75 99
07/07/25 15:00 07/07/25 15:00 07/07/25 15:00 07/07/25 15:00 07/07/25 15:00
<Omar Nagy PA-C - Last Filed: 07/05/25 09:38>
MDM/Problems Addressed
Differential Diagnosis Includes:
Complicated diverticulitis
Abscess
Perforation
Bacteremia/Sepsis
Appy
Colitis
MDM/Problems Addressed:
64-year-old male presenting to the ER for evaluation of lower abdominal pain, recent bleeding admitted here for diverticulitis with abscess, still on antibiotics, had been doing better with IV antibiotics and was discharged home, currently still on
oral antibiotics however now with worsening pain and fevers. Triage vital signs noted for tachycardia with a low-grade fever. Labs were initiated which do show a leukocytosis of 15,000 with a leftward shift. Will obtain lactic acid and blood
cultures. Fluids ordered. CT ordered. Anticipate admission.
<Omar Nagy PA-C - Last Filed: 07/05/25 09:38>
*Radiology
Radiology exam reviewed: radiology read reviewed
*Pulse Oximetry
SaO2: 96
Oxygen Mode of Delivery: Room air
Patient hypoxic: no
*Critical Care Note
Total Time (30-74mins, 75-104mins- exclusive of procedures): 30
comment:
Critical care statement: A total of 30 minutes of critical care time was provided for this patient. This includes management of unstable vital signs, evaluation of the patient at bedside, reviewing the patient's pertinent medical records, discussion
with consultants, review of old EKGs and review of pertinent medical records. This time with separate from time utilized to perform the aforementioned documented procedures
Data Reviewed
Review of Other/Old Records Reveals: Labs, Records and Discharge Summary
<Omar Nagy PA-C - Last Filed: 07/05/25 09:38>
Patient Management
Discussion with other providers: Hospitalist and Crime Lab Technician
Escalation/DeEscalation of care consider admission/obs:
CT shows a worsening/progressed diverticular abscess but without any large drainable collection. There is also a new portal vein thrombus. I notified the hospitalist team who will admit, both colorectal and GI made aware, will initiate patient on
heparin drip due to the new portal vein thrombus. Levaquin and Flagyl ordered for antibiotic coverage of the diverticular abscess. Colorectal will see the patient in the morning.
ED Attending Note
<Omar Nagy PA-C - Last Filed: 07/05/25 09:38>
-
Portions of this chart may have been created with voice recognition software.� Occasional wrong word or��sound alike� substitutions may have occurred due to the inherent limitations of voice recognition software.
<Robert Carnes MD - Last Filed: 07/10/25 06:03>
ED Attending Note
Patient seen and examined by attending physician: Yes
ED Attending Note:
Patient recently admitted and treated for diverticulitis with abscess, currently taking Augmentin as outpatient, presents to ED secondary to worsening abdominal pain, associated with fever and chills over the past 24 hours. Patient has lost
approximately 18 pounds since onset of his symptoms, which started about 3 weeks ago. Denies diarrhea. Denies chest pain. Denies dizziness. Patient reports generalized weakness.
Physical Exam
General: mild painful distress, not acutely ill. afebrile.
Head: nc/at. eomi
Neck: supple. normal range of motion
Abdomen: normal bowel sounds. mild diffuse abdominal tenderness to palpation, without distention
Neuro: alert and oriented x 3. no focal neurological deficits
Skin: no rash
Psychiatric: well kept. interactive and cooperative
Extremities: no edema.
History exam, along with CT abdomen pelvis concerning for ongoing diverticulitis with abscess, as well as new portal vein thrombosis. Patient will be admitted for further evaluation and treatment. Patient will be started on heparin protocol, per
hospitalist recommendation. Colorectal surgery and GI on-call notified via [facility] text.
Discharge Plan
Departure
Patient Disposition: Admit
Date of Disposition: 07/04/25
Time of Disposition: 19:29
Presentation/result/management discussed w/ accepting MD/DO: Hospitalist
Discharge Problem:
Diverticulitis of intestine with abscess without bleeding
Interventions
Interventions:
*Risk Screen - Suicide Last Done: 07/04/25 21:03
*General Assessment Last Done: 07/04/25 14:58
*Neglect/Abuse Screening Last Done: 07/04/25 14:58
*ED- Fall Risk Assessment Last Done: 07/04/25 16:10
*ED COVID-19 Vaccine History Last Done: 07/04/25 21:03
*ED Influenza Vaccine History Last Done: 07/04/25 14:58
*Nursing Disposition Last Done: 07/04/25 21:00
AF-Rqwnyk-Vtaumoeueq Assessment Last Done: 07/04/25 16:10
Discharge Date and Time
Discharge Date/Time: 07/04/25 21:00
[2025-07-04] MEDS: TYLENOL 1000 MG PO (19:42)
[2025-07-04] MEDS: FLAGYL 500 MG 100 IV (19:44)
[2025-07-04] MEDS: LEVAQUIN 150 IV (19:54)
--- NOTE | 2025-07-04 19:59 | HPS.HSE ---
Family Physician
-
Family Physician: Jarvis Li
Chief Complaint
-
Abdominal Pain
History of Present Illness
Patient is a 64 y/o male past medical history of diverticulitis who presents with fever. Patient was admitted to [facility] Jun 22 - for diverticulitis with abscess. He was started on Zosyn and subsequently discharged on Augmentin.
Patient completed his coarse of oral antibiotics yesterday afternoon. He notes worsening abdominal pain since yesterday, then developed fever with sweats and chills today prompting him to return to the emergency department. Patient reports
constipation and has noted painful bowel movement since this all started.
Medical History
Past Medical History
Past Medical History: Reports Other
Additional Past Medical History:
Diverticulitis
Non-Hodgkin Lymphoma s/p Chemo/Radiation - Now in Remission
Past Surgical History: Reports Other
Additional Past Surgical History:
Lung Biopsy
Social History
Tobacco: Non-smoker
Alcohol: None
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
Family History
Family History: Other (Diverticulitis in parents and siblings )
Allergies / Home Medications
Allergies reflects when Allergies were last updated in [employer].
Home Medications with original date entered in [employer]
Allergy/Medication List:
Allergies
Allergy/AdvReac Type Severity Reaction Status Date / Time
lactase (From [employer]) Allergy Unknown Verified 07/04/25 15:00
Home Medications
No Meds [No Current Medications] 07/04/25
Review of Systems
-
A 12 point ROS was completed and negative except as noted: Yes
Constitutional: Reports Fever, Night Sweats and Chills
Respiratory: Denies Cough or Trouble Breathing
Cardiac: Denies Chest Pain or Palpitations
Physical Exam
Vital Signs
Vital Signs
Temp Pulse Resp BP Pulse Ox
100.2 F 88 16 122/89 97
07/04/25 14:58 07/04/25 17:45 07/04/25 14:58 07/04/25 16:58 07/04/25 17:45
Physical Exam
General: Comfortable and Conversant
HEENT: Anicteric and Moist mucous membranes
Respiratory: Clear and Non Labored Respirations
Cardiac: S1/S2 and Regular Rhythm
GI: Soft and Tender (Lower Abdomen)
Rectal: Deferred by Provider
Musculoskeletal: No Clubbing and No Cyanosis
Skin: Warm and Dry
Neuro: Awake, Alert, Oriented and Nonfocal/grossly intact
Psych: Calm
Laboratory Results
-
07/04/25 15:08
07/04/25 15:08
Laboratory Results
Lactic Acid Cancelled 07/04/25 20:45
Total Bilirubin 0.5 mg/dl (0.2-1.3) 07/04/25 15:08
AST 27 U/L (17-59) 07/04/25 15:08
ALT 22 U/L (0-50) 07/04/25 15:08
Alkaline Phosphatase 67 U/L (38-126) 07/04/25 15:08
Lipase 19 U/L (23-300) L 07/04/25 15:08
Abd/Pelvis CT:
CT findings compatible with diverticulitis involving the sigmoid colon. There is an irregular extraluminal collection posterior and superior to the sigmoid colon, containing air, small amount of fluid, and soft tissue, compatible with extraluminal
abscess/phlegmon. This has increased since previous examination, but does not contain a well-defined drainable fluid collection.
No evidence for free intraperitoneal air.
There is expansile thrombus involving the left portal vein which is new from prior CT examination of June 21, 2025.
Interval increase in dilation of the left renal pelvis and ureter, likely due to inflammatory changes adjacent to the mid to distal left ureter for diverticulitis.
Data Reviewed
-
CT Scan: Report Reviewed by me
Lab Data: Labs Reviewed by me
Impression/Plan
-
Persistent Diverticulitis with Abscess
-Consult Colorectal Surgery
-Continue NPO/IVFs
-Continue Levaquin / Flagyl
Portal Vein Thrombosis, likely related to ongoing inflammation
-Consult Hematology
-Continue heparin drip
Code Status: Full Code
[2025-07-04 20:00] VITALS: BP 131/66
--- NOTE | 2025-07-04 20:14 | W.PN.UPDATE ---
Update Note
Progress Note Update
Patient seen in conjunction with nurse practitioner. I agree with the findings on history and physical. I concur with the assessment and plan.
This is a 64-year-old male with past medical history of non-Hodgkin's lymphoma 100 in the past that was treated and in remission was recently admitted for acute diverticulitis involving the sigmoid colon. He had been on oral antibiotics (Augmentin)
for about 10 days prior to admission at that time, was found to have a small extraluminal collection posterior and superior to the sigmoid colon containing a small amount of fluid and soft tissue that was not drainable at that time. He was placed
on IV Zosyn and treated for 3 days before narrowing to Augmentin on discharge. Patient felt better by the time of discharge but soon afterwards developed abdominal pain in the bilateral lower quadrants that was intermittent. He reports a temp of
100.4 for Tmax at home as well as intermittent episodes of shaking chills. He has intermittent constipation and pain with stooling.
On return here to the emergency department he had a temp of 100.2, blood pressure was 122/89 with a pulse of 88, WBC 15.6 with normal hemoglobin and platelet. Electrolytes BUN/creatinine normal. LFTs and lipase were normal.
CT findings again compatible with diverticulitis of the sigmoid colon with again seen irregular extraluminal collection containing small amounts of air, fluid and soft tissue that is compatible with a extraluminal abscess or phlegmon, increased
since previous examination but does not contain a well-defined drainable fluid collection. CT also found expansile thrombus involving the left portal vein.
Assessment and plan
Unfortunately patient has persistent symptomatic of diverticulitis with some signs of systemic infection including leukocytosis and low-grade temps despite treatment with antibiotics. Suspect failure of oral antibiotics and patient may need longer
IV antibiotic treatment.
[facility]
- Blood cultures sent
- Will continue IV Levaquin plus Flagyl for now
- N.p.o., pain control, IV fluids and antiemetics
-Colorectal surgery consulted and following
Portal vein thrombus - acute/new thrombus likely in the setting of phase infectious/inflammatory process. No history of liver disease. No pancreatitis. No evidence of hepatic mass. Prior history of non-Hodgkin's lymphoma but no evidence of
recurrence. No history of clotting or bleeding disorders. No prior DVT.
- start unfractionated heparin incase invasive procedure
- AC (6 months) recommended with follow up imaging, oral AC per hematology
- hematology consultation
DVT PPX - on heparin gtt
Code status - Full Code
[2025-07-04 20:17] LABS: APTT 41.1 Sec (23.4-35.0)
[2025-07-04 21:30] VITALS: BP 113/64; BMI 27.7
[2025-07-04] MEDS: HEPARIN 25000 UNITS/250 ML IV (21:47)
[2025-07-04 22:01] VITALS: BP 139/82
[2025-07-04] MEDS: MELATONIN 5 MG PO (23:20)
[2025-07-04 23:52] VITALS: BP 113/64
[2025-07-05] MEDS: FLAGYL 500 MG 100 IV ×3 (04:02→19:40)
[2025-07-05 04:20] LABS: Hematocrit 41.1 % (39.0-52.0); Hemoglobin 13.8 g/dL (13.0-18.0); Mean Corp Hgb Conc. 33.6 g/dL (33.0-37.0); Mean Corpuscular Volume 89.3 fL (80.0-94.0); Platelet Count 322 10^3/uL (130-400); Red Cell Dist. Width 12.8 % (11.5-14.5)
[2025-07-05 04:28] LABS: APTT 132.6 Sec (23.4-35.0)
[2025-07-05 05:42] LABS: Blood Urea Nitrogen 12 mg/dl (9-20); Calcium 9.2 mg/dl (8.4-10.2); Carbon Dioxide 27 mmol/L (22-30); Chloride 104 mmol/L (98-107); Estimated Creatinine Clearance 95 ml/min; Glucose 106 mg/dl (70-99); Potassium 4.5 mmol/L (3.5-5.1); Sodium 137 mmol/L (135-145); eGFR > 60.00
[2025-07-05 07:00] VITALS: BP 134/72
[2025-07-05] MEDS: NSS 1000 IV (07:20)
--- NOTE | 2025-07-05 08:46 | CON.CRS ---
Consultation
-
Date/Time Consultation Requested: 07/04/2025, 21:00
Date/Time Consultation Performed: 07/05/2025, 08:00
Requesting Provider: Lali Ba PA-C
Performing Provider: Soy Parikh MD
Reason for Consultation: diverticulitis
Medical History
-
Chief Complaint: abdominal pain
History of Present Illness:
64-year-old male with a past medical history of diverticulitis recently hospitalized from to 06/24/2025, presents to [place] [facility] complaining of worsening abdominal pain, fevers, and chills. He recently completed a course of antibiotics
that he was discharged on during his last admission. That admission was also his first diverticulitis attack. He states he now has a little bit of pain but it is not any worse than it was when he came in. He is very hungry. His last bowel
movement was yesterday. He denies any bleeding. He has never had any surgery on his abdomen before. He finished chemotherapy 14 years ago for non-Hodgkin's lymphoma. He has not had any radiation. CT of the abdomen and pelvis shows sigmoid
diverticulitis in the colon with an irregular extraluminal collection posterior superior to the sigmoid colon measuring 5 cm x 6 cm x 4 cm. There was also an expansile thrombus involving left portal vein. He was started on a heparin drip. On
admission his WBC was 15.6 and is 12.0 today. His vitals have remained normal. His Tmax was 100.2. Given the above, we have been consulted for further surgical recommendations.
Past Medical History
Past Medical History: Other (Cancer (HS NHL s/p chemo - 14 years ago ) and Diverticulitis)
Past Surgical History: Other (Lung Biopsy)
Social History
Tobacco: Non-Smoker
Alcohol: None
Drug: None
Family History
Family History: Reviewed & Not Pertinent
Allergies / Home Medications
Allergy/AdvReac Type Severity Reaction Status Date / Time
lactase (From [employer]) Allergy Unknown Verified 07/04/25 15:00
�Medication �Instructions �Recorded �Confirmed �Type
No Meds [No Current Medications] 07/04/25 07/04/25 History
Review of Systems
-
History Source: Patient
All other systems: Negative unless noted
Constitutional: Fever and Chills
Abdomen/GI: Abdominal Pain
A 10 point review of systems was completed, and was negative except as per HPI.
Physical Exam
Vital Signs
Temp 98.1 F 07/04/25 22:01
Pulse 90 07/04/25 22:01
Resp Rate 12 07/04/25 22:01
Blood pressure 139/82 07/04/25 22:01
SaO2 97 07/04/25 22:01
07/04/25 07/05/25 07/06/25
06:59 06:59 06:59
Actual Weight 95.339 kg
Body Mass Index (BMI) 27.7
Lab Results / Allergies
07/05/25 04:09
07/05/25 04:09
WBC 12.0 10^3/uL (4.8-10.8) H 07/05/25 04:09
Hgb 13.8 g/dL (13.0-18.0) 07/05/25 04:09
Hct 41.1 % (39.0-52.0) 07/05/25 04:09
Plt Count 322 10^3/uL (130-400) 07/05/25 04:09
Abs Immat Gran (auto) 0.1 10^3/uL (0-0.05) H 07/04/25 15:08
Neutrophils % 83.5 % (42.2-75.2) H 07/04/25 15:08
Allergy/AdvReac Type Severity Reaction Status Date / Time
lactase (From [employer]) Allergy Unknown Verified 07/04/25 15:00
Physical Exam
General: Well Developed
GI: Soft, Non Tender and Tender (LLQ- mild)
Skin: Warm and Dry
Neuro: AO x 3
Psych: Calm
Data Reviewed
-
CT Scan: Image Personally Visualized and interpreted, Report Reviewed by me and Discussed with Patient
Labs: Labs Reviewed by me, Discussed with Physician and Discussed with Patient
Old Records: Reviewed
Assessment / Plan
-
Assessment: 64-year-old male with sigmoid diverticulitis and associated abscess with recent admission to [facility] 2 weeks ago status post oral antibiotics, presents with worsening abdominal pain, fevers, and chills at home and found to have
recurrent sigmoid diverticulitis with abscess and a portal vein thrombosis
Plan:
-No plans for surgery at this time. If he worsens, he will require a colectomy with colostomy creation.
-Maintain IV antibiotics
-Recommend ID consult given recurrent diverticulitis
-Maintain heparin gtt due to new portal vein thrombosis
-Trend WBC/CRP
-Advance to low residue diet
-Will need eventual elective surgery
[2025-07-05 09:32] LABS: C-Reactive Protein 116.30 mg/L (0.0-10.00)
[2025-07-05 11:10] VITALS: BMI 27.7
--- NOTE | 2025-07-05 12:14 | W.PN.HOSP.TC ---
Today's Communication/Plan
-
IV antibiotics. Pain control
Assessment / Plan
Assessment / Plan
Physical exam:
General: Acutely ill
HEENT: Normocephalic, Atraumatic and Moist Mucous Membranes
Respiratory: Clear to Auscultation; Negative Wheezes, Rales or Rhonchi
Cardiac: Regular Rhythm and S1/S2
GI: Soft, tender and Nondistended
Musculoskeletal: No Clubbing, No Cyanosis and No Edema
Neuro: Awake, Alert and Oriented, no neurological deficit
Psych: Calm
A/P:
Persistent Diverticulitis with Abscess
-Consult Colorectal Surgery and appreciated input
- Started on diet per colorectal surgery, low residue diet
-Stop IV fluid
-Continue IV Levaquin / Flagyl
- Add pain medications as needed
- Colorectal surgery consulted ID
- Discussed with family
Portal Vein Thrombosis, likely related to ongoing inflammation
-Consulted Hematology and appreciated input
-Continue heparin drip and once close to discharge can transition to DOAC
Code Status: Full Code
Time spent 35 minutes
Anticipated Discharge: 24 - 48 hours
Subjective/Interval History
-
Date of Service: July 05, 2025
Patient with improved abdominal discomfort, no nausea or vomiting. Afebrile
Objective Data
-
Labs:
Laboratory Results
07/05/25 07/05/25
04:09 11:57
WBC 12.0 H
Hgb 13.8
Hct 41.1
Plt Count 322
APTT 132.6 H Pending
Sodium 137
Potassium 4.5
Chloride 104
Carbon Dioxide 27
BUN 12
Creatinine 0.9
Glucose 106 H
Calcium 9.2
Vital Signs:
Vital Signs
Temp Pulse Resp BP Pulse Ox
97.4 F 65 18 134/72 100
07/05/25 07:00 07/05/25 07:00 07/05/25 07:00 07/05/25 07:00 07/05/25 07:00
I&O
07/04/25 07/05/25 07/06/25
06:59 06:59 06:59
Intake Total 900 / 900
Balance 900 / 900
[2025-07-05 12:21] LABS: APTT 88.1 Sec (23.4-35.0)
[2025-07-05] MEDS: HEPARIN 25000 UNITS/250 ML IV (13:49)
--- NOTE | 2025-07-05 14:41 | CON.ONC ---
Documented by User: Cecelia Doyle MD, Resident 07/05/25 14:49
Consultation
-
Date Consultation Requested: 07/05/25
Date Consultation Performed: 07/05/25
Requesting Provider: Dr. Hany Gibson
Performing Provider: Dr. Edwin Ontiveros
Reason for Consultation: Portal vein thrombosis on CT scan
Impression
Impression
#Persistent diverticulitis with abscess
#Portal vein thrombosis in the setting of diverticulitis with abscess
Plan
Plan
- 64-year-old male with recent hospitalization for diverticulitis with abscess (06/22 to 06/24) now presenting with recurrent fever and worsening abdominal pain despite completing antibiotic therapy.
- CT demonstrates new expansile thrombus in the left portal vein, likely secondary to intra-abdominal infection.
- Colorectal surgery suggesting no need for surgery at the time.
- Continue antibiotics, and heparin infusion during hospitalization.
- Transition to DOAC at discharge if no contraindications for a minimum of 3 months.
- Reimage at 3 months to assess for resolution. If persistent, consider extending duration and evaluating for underlying prothrombotic disorder.
- Patient to follow-up outpatient with Dr. Mcclellan at [place].
Patient History
History of Present Illness
Patient is a 64-year-old male with a past medical history of non-Hodgkin's lymphoma and diverticulitis who presents with fever. Patient was admitted to the hospital from 06/22/2025 to 06/24/2025 for diverticulitis with abscess. He was initiated on
Zosyn and eventually discharged with Augmentin. Patient has had worsening of abdominal pain despite completing course of antibiotics. He also has had associated fever and chills. CT scan showed expansile thrombus involving left portal vein which
is new from prior CT in May 2025.
Past-Medical/Surgical History
Diverticulitis
Non-Hodgkin Lymphoma s/p Chemo/Radiation - Now in Remission
Past Surgical History:
Lung Biopsy
Patient Medication
�Medication �Instructions �Recorded �Confirmed �Last Taken �Type
No Meds [No Current Medications] 07/04/25 07/04/25 Unknown History
Active Medications
Generic Name Dose Route Start Last Admin
Trade Name Freq PRN Reason Stop Dose Admin
Acetaminophen 650 mg 07/04/25 21:00
Acetaminophen 325 Mg Tablet PO 08/01/25 20:59
Q4HPRN PRN
mild pain/ fever>100.5F
Heparin Sodium 25,000 units in 250 mls @ 0 mls/hr 07/04/25 19:30 07/05/25 13:49
Heparin 26452 Units/250 Ml IV 250 mls
PER PROTOCOL IRAJ Administration
Protocol
Per Protocol
Levofloxacin/Dextrose 500 mg in 100 mls @ 100 mls/hr 07/05/25 20:00
Levaquin IV
Q24H IRAJ
Metronidazole 100 mls @ 100 mls/hr 07/05/25 04:00 07/05/25 11:41
Flagyl 500 Mg IV 100 mls
Q8H IRAJ Administration
Sodium Chloride 1,000 mls @ 100 mls/hr 07/04/25 21:00 07/05/25 07:20
Nss IV 1,000 mls
.Q10H IRAJ Administration
Melatonin 5 mg 07/05/25 22:00
Melatonin 5 Mg Tablet PO 08/02/25 21:59
HS IRAJ
Ondansetron HCl 4 mg 07/04/25 21:00
Ondansetron 4 Mg/2 Ml Vial IV 08/01/25 20:59
Q6HPRN PRN
NAUSEA/VOMITING
Sodium Chloride 0 flush 07/04/25 22:00
Sodium Chloride 0.9% (Flush) Syringe IV 08/01/25 21:59
PER PROTOCOL IRAJ
Review of Systems
-
History Source: Patient and Family
All Other Systems: Reviewed and Negative
Constitutional: Reports Fever and Chills
EENT: Reports No Symptoms
Respiratory: Reports No Symptoms
Cardiac: Reports No Symptoms
GI: Reports Abdominal Pain
: Reports No Symptoms
Musculoskeletal: Reports No Symptoms
Skin: Reports No Symptoms
Neuro: Reports No Symptoms
Endocrine: Reports No Symptoms
Hematologic/Lymphatic: Reports No Symptoms
Physical Exam
-
General: Well Developed, Well Nourished, No Apparent Distress, Comfortable and Conversant
HEENT: Moist Mucous Membranes
Cardiology: Normal Sinus Rhythm, S1 and S2
Pulmonary: Clear
GI: Soft and Normal Bowel Sounds
Musculoskeletal: No Clubbing, No Cyanosis and No Edema
Skin: Warm
Psych: Calm
Labs
Lab Results
WBC 12.0 10^3/uL (4.8-10.8) H 07/05/25 04:09
RBC 4.60 10^6/uL (4.70-6.10) L 07/05/25 04:09
Hgb 13.8 g/dL (13.0-18.0) 07/05/25 04:09
Hct 41.1 % (39.0-52.0) 07/05/25 04:09
MCV 89.3 fL (80.0-94.0) 07/05/25 04:09
MCH 30.0 pg (27.0-31.0) 07/05/25 04:09
MCHC 33.6 g/dL (33.0-37.0) 07/05/25 04:09
RDW 12.8 % (11.5-14.5) 07/05/25 04:09
Plt Count 322 10^3/uL (130-400) 07/05/25 04:09
MPV 10.1 fL (7.4-10.4) 07/05/25 04:09
Abs Immat Gran (auto) 0.1 10^3/uL (0-0.05) H 07/04/25 15:08
Absolute Neuts (auto) 13.0 10^3/uL (1.4-6.5) H 07/04/25 15:08
Absolute Lymphs (auto) 0.9 10^3/uL (1.2-3.4) L 07/04/25 15:08
Absolute Monos (auto) 1.6 10^3/uL (0.1-0.6) H 07/04/25 15:08
Absolute Eos (auto) 0.1 10^3/uL (0-0.7) 07/04/25 15:08
Absolute Basos (auto) 0.1 10^3/uL (0-0.2) 07/04/25 15:08
Immature Gran % 0.4 % (0-0.5) 07/04/25 15:08
Neutrophils % 83.5 % (42.2-75.2) H 07/04/25 15:08
Lymphocytes % 5.6 % (20.5-51.1) L 07/04/25 15:08
Monocytes % 9.9 % (1.7-9.3) H 07/04/25 15:08
Eosinophils % 0.3 % (0-6) 07/04/25 15:08
Basophils % 0.3 % (0-2) 07/04/25 15:08
Creatinine 0.9 mg/dL (0.7-1.3) 07/05/25 04:09
Vital Signs
Vital Signs
Temp Pulse Resp BP Pulse Ox
97.4 F 65 18 134/72 100
07/05/25 07:00 07/05/25 07:00 07/05/25 07:00 07/05/25 07:00 07/05/25 07:00

Documented by User: Edwin Ontiveros MD 07/05/25 14:55
Plan
Plan
- 64-year-old male with recent hospitalization for diverticulitis with abscess (06/22 to 06/24) now presenting with recurrent fever and worsening abdominal pain despite completing antibiotic therapy.
- CT demonstrates new expansile thrombus in the left portal vein, likely secondary to intra-abdominal infection.
- Colorectal surgery suggesting no need for surgery at the time.
- Continue antibiotics, and heparin infusion during hospitalization.
- Transition to DOAC at discharge if no contraindications for a minimum of 3 months.
- Reimage at 3 months to assess for resolution. If persistent, consider extending duration and evaluating for underlying prothrombotic disorder.
- Patient to follow-up outpatient with Dr. Mcclellan at [place].
Hematology Addendum:
Patient seen and evaluated and agree w/ resident note and plan.
-diverticulitis w/ portal vein thrombosis
-agree w/ heparin gtt - w/ transition to DOAC upon discharge
-pt has tree wrapper Dr. Mcclellan at [place] - with which f/u will be arranged 8-10 weeks
-will defer duration of anticoagulation and f/u of portal vein thrombosis to patient's primary tree wrapper
--- NOTE | 2025-07-05 14:43 | CM ---
Initial assessment completed. Patient is a 64 y/o male past medical history of diverticulitis who presents with fever and abdominal pain. Recent admission 06/22-06/24 for diverticulitis with abscess.
Patient resides w/ spouse in [facility], 2 steps to enter from the outside. Patient is independent in all areas, no DME reported. No SNF/HC hx.
Address, point of contact and insurance verified
PCP: Jarvis Li
Pharmacy: [facility]
Plan: Anticipate home, no needs
[2025-07-05 15:00] VITALS: BP 134/75
--- NOTE | 2025-07-05 15:34 | CON.ID ---
Consultation
-
Date/Time Consultation Requested: 07/05/2025 0852
Date/Time Consultation Performed: 07/05/2025 1530
Requesting Provider: Miriam Lyons
Performing Provider: Dr. Lujan
Reason for Consultation: Diverticulitis
Chief Complaint / Past History
History of Present Illness
Ladarius Dominguez is a 64-year-old man being evaluated at the request of Miriam Lyons regarding diverticulitis. History is obtained from chart review, on the patient interview.
The patient reports that he has a prior history of diverticulosis diagnosed on colonoscopy approximately 5 years ago. Approximately 3 to 4 weeks ago he developed some lower abdominal discomfort. He contacted his PCP and he was placed on a 10-day
course of Augmentin. He notes that near the end of the course of [place] he had some increasing pain and ultimately a CT scan was ordered which revealed acute diverticulitis with a small abscess not amenable to percutaneous drainage. The patient
was admitted to [facility] for approximately 3 days, placed on IV antibiotics, and ultimately discharged back to home on a course of Augmentin. He notes that he had improvement, but earlier this week he had increase in abdominal discomfort
and 2 days ago he developed chills. He called his PCP and was told to come back to the ER for further evaluation. Here imaging again revealed diverticulitis of the sigmoid colon, with some increase in the abscess and phlegmon. He was also found
to have a left portal vein thrombus.
At this point in time he reports he feels okay. He denies any current abdominal pain. He denies any fevers. He denies any nausea, vomiting or diarrhea. He has been started on empiric antibiotics. Infectious Diseases asked to comment upon
further antimicrobial therapy.
Past History
Additional Past Medical History:
Diverticulitis
Hx NHL (s/p chemo/XRT)
Additional Past Surgical History:
Lung biopsy
Allergy History:
lactase (From [employer]) Allergy (Verified 07/04/25 15:00)
Unknown
Medications Reviewed: Yes
Current Antibiotics:
Levofloxacin 500 mg IV q.24 hours
Metronidazole 500 mg IV q.8 hours
Social History
Tobacco: Non-Smoker
Alcohol: None
Drug: None
Personal:
Living: With Family
Employment: Employed
Family History
Family History: Not Pertinent
Review of Systems
Vital Signs
Temp Pulse Resp BP Pulse Ox
97.4 F 65 18 134/72 100
07/05/25 07:00 07/05/25 07:00 07/05/25 07:00 07/05/25 07:00 07/05/25 07:00
Physical Exam
Physical Exam
Constitutional: No Acute Distress, Comfortable and Non-toxic
Eyes: No Conjunctival Hemorrhage and Sclera Anicteric
Oral: No Thrush and No Ulcers
Cardiovascular: Regular Rate and S1/S2; Negative S3/S4
Pulmonary: Clear; Negative Wheezes, Rales or Rhonchi
Gastrointestinal: Soft, Non Tender, Non Distended and Normal Bowel Sounds
Extremities: Edema
Neurological: Awake and Alert
Psychological: Calm
Lab / Diagnostic Study Results
07/05/25 04:09
07/05/25 04:09
Abs Immat Gran (auto) 0.1 10^3/uL (0-0.05) H 07/04/25 15:08
Absolute Neuts (auto) 13.0 10^3/uL (1.4-6.5) H 07/04/25 15:08
Absolute Lymphs (auto) 0.9 10^3/uL (1.2-3.4) L 07/04/25 15:08
Absolute Monos (auto) 1.6 10^3/uL (0.1-0.6) H 07/04/25 15:08
Absolute Basos (auto) 0.1 10^3/uL (0-0.2) 07/04/25 15:08
Immature Gran % 0.4 % (0-0.5) 07/04/25 15:08
Neutrophils % 83.5 % (42.2-75.2) H 07/04/25 15:08
Lymphocytes % 5.6 % (20.5-51.1) L 07/04/25 15:08
Monocytes % 9.9 % (1.7-9.3) H 07/04/25 15:08
Eosinophils % 0.3 % (0-6) 07/04/25 15:08
Basophils % 0.3 % (0-2) 07/04/25 15:08
Lactic Acid Cancelled 07/04/25 20:45
C-Reactive Protein 116.30 mg/L (0.0-10.00) H 07/05/25 04:09
Microbiology Results
Micro:
07/04/25 16:50 Blood Culture - Pending
Blood/Venous
07/04/25 16:50 Blood Culture - Pending
Blood/Venous
Imaging:
07/04/2025 CT abdomen/pelvis with contrast: CT findings compatible with diverticulitis involving the sigmoid colon. There is an irregular extraluminal collection posterior and superior to the sigmoid colon, containing air, small amount of fluid, and
soft tissue, compatible with extraluminal abscess/phlegmon. This has increased since previous examination, but does not contain a well-defined drainable fluid collection. No evidence for free intraperitoneal air. There is expansile thrombus
involving the left portal vein which is new from prior CT examination of June 21, 2025. Interval increase in dilation of the left renal pelvis and ureter, likely due to inflammatory changes adjacent to the mid to distal left ureter for
diverticulitis.
Assessment / Plan
Leukocytosis
Diverticulitis with abscess/phlegmon
Portal vein thrombosis
Elevated CRP
Recommendations:
Patient has been started on empiric levofloxacin/metronidazole with improvement in leukocytosis today.
Not clear whether failure of prior antibiotics was due to antibiotic resistance, or lower drug levels from oral therapy.
Continue with levofloxacin and metronidazole for now and follow-up for ongoing clinical improvement.
If clinical improvement is noted, at discharge can be transitioned to oral formulation.
Monitor white count and temperature curve.
[2025-07-05 18:44] LABS: APTT 80.1 Sec (23.4-35.0)
[2025-07-05] MEDS: LEVAQUIN 100 IV (19:40)
[2025-07-05 23:00] VITALS: BP 136/72
[2025-07-05] MEDS: ROXICODONE 5 MG PO (23:26)
[2025-07-05] MEDS: MELATONIN 5 MG PO (23:26)
[2025-07-06] MEDS: FLAGYL 500 MG 100 IV ×3 (03:39→20:33)
[2025-07-06] MEDS: HEPARIN 25000 UNITS/250 ML IV ×2 (05:02→20:30)
[2025-07-06 07:00] VITALS: BP 135/72
[2025-07-06 09:45] LABS: Hematocrit 37.6 % (39.0-52.0); Hemoglobin 13.0 g/dL (13.0-18.0); Mean Corp Hgb Conc. 34.6 g/dL (33.0-37.0); Mean Corpuscular Volume 88.9 fL (80.0-94.0); Platelet Count 306 10^3/uL (130-400); Red Cell Dist. Width 12.7 % (11.5-14.5)
[2025-07-06 09:57] LABS: APTT 62.8 Sec (23.4-35.0)
[2025-07-06 10:17] LABS: Blood Urea Nitrogen 13 mg/dl (9-20); Calcium 8.9 mg/dl (8.4-10.2); Carbon Dioxide 26 mmol/L (22-30); Chloride 102 mmol/L (98-107); Estimated Creatinine Clearance 95 ml/min; Glucose 155 mg/dl (70-99); Potassium 4.3 mmol/L (3.5-5.1); Sodium 135 mmol/L (135-145); eGFR > 60.00
--- NOTE | 2025-07-06 11:19 | W.PN.HOSP.TC ---
Today's Communication/Plan
-
Antibiotics. Heparin drip. Pain control
Assessment / Plan
Assessment / Plan
Physical exam:
General: Acutely ill
HEENT: Normocephalic, Atraumatic and Moist Mucous Membranes
Respiratory: Clear to Auscultation; Negative Wheezes, Rales or Rhonchi
Cardiac: Regular Rhythm and S1/S2
GI: Soft, tender and Nondistended
Musculoskeletal: No Clubbing, No Cyanosis and No Edema
Neuro: Awake, Alert and Oriented, no neurological deficit
Psych: Calm
A/P:
Persistent Diverticulitis with Abscess
-Consult Colorectal Surgery and appreciated input.
- Started on diet per colorectal surgery, low residue diet
-Stop IV fluid
-Continue IV Levaquin / Flagyl
- Add pain medications as needed
- Colorectal surgery consulted ID
- Discussed with family at bedside
07/06:
Continue current antibiotics
Continue pain
Follow-up colorectal surgery recommendations
Portal Vein Thrombosis, likely related to ongoing inflammation
-Consulted Hematology and appreciated input
-Continue heparin drip and once close to discharge can transition to DOAC
07/06:
Continue IV heparin drip
Planning to switch to DOAC upon discharge
Code Status: Full Code
Time spent 35 minutes
Anticipated Discharge: 24 - 48 hours
Subjective/Interval History
-
Date of Service: July 06, 2025
Patient feels better overall. Did have some abdominal pain and required pain medications overnight. No nausea or vomiting. Afebrile
Objective Data
-
Labs:
Laboratory Results
07/06/25 07/06/25
08:47 16:10
WBC 8.9
Hgb 13.0
Hct 37.6 L
Plt Count 306
APTT 62.8 H Pending
Sodium 135
Potassium 4.3
Chloride 102
Carbon Dioxide 26
BUN 13
Creatinine 0.9
Glucose 155 H
Calcium 8.9
Vital Signs:
Vital Signs
Temp Pulse Resp BP Pulse Ox
97.5 F 63 16 135/72 97
07/06/25 07:00 07/06/25 07:00 07/06/25 07:00 07/06/25 07:00 07/06/25 07:00
I&O
07/05/25 07/06/25 07/07/25
06:59 06:59 06:59
Intake Total 900 / 900 960 / 960
Balance 900 / 900 960 / 960
--- NOTE | 2025-07-06 11:45 | W.PN.ID1 ---
Date of Service
Date of Service: July 06, 2025
Today's Communication
Continue abx's.
Assessment / Plan
Leukocytosis- resolvied
Diverticulitis with abscess/phlegmon
Portal vein thrombosis
Elevated CRP
Recommendations:
Blood cx's neg to date.
Patient has been started on empiric levofloxacin/metronidazole with improvement in leukocytosis today.
Not clear whether failure of prior antibiotics was due to antibiotic resistance, or lower drug levels from oral therapy.
Continue with levofloxacin and metronidazole for now and follow-up for ongoing clinical improvement.
If clinical improvement is noted, at discharge can be transitioned to oral levofloxacin 750mg qd and metronidazole 500m po bid x 3 -4 weeks. .
Monitor white count and temperature curve.
Chief Complaint
-: Other (Diverticulitis)
Subjective / Review of Systems
No worsening abd pain; pain intermittent
Vital Signs / Physical Exam
Vital Signs
Vital Signs
Temp Pulse Resp BP Pulse Ox
97.5 F 63 16 135/72 97
07/06/25 07:00 07/06/25 07:00 07/06/25 07:00 07/06/25 07:00 07/06/25 07:00
Physical Exam
Constitutional: Comfortable
Cardiovascular: Regular Rate and S1/S2
Pulmonary: Clear
Gastrointestinal: Soft, Non Tender and Non Distended
Extremities: Negative Edema
Neurological: AO x 3
Objective Data
Lab Data
Lab Results
07/06/25 08:47
07/06/25 08:47
APTT 62.8 Sec (23.4-35.0) H 07/06/25 08:47
Estimated Creat Clear 95 ml/min 07/06/25 08:47
Lactic Acid Cancelled 07/04/25 20:45
Total Bilirubin 0.5 mg/dl (0.2-1.3) 07/04/25 15:08
AST 27 U/L (17-59) 07/04/25 15:08
ALT 22 U/L (0-50) 07/04/25 15:08
Alkaline Phosphatase 67 U/L (38-126) 07/04/25 15:08
C-Reactive Protein 116.30 mg/L (0.0-10.00) H 07/05/25 04:09
Most recent labs reviewed.
Micro Results:
07/04/25 16:50 Blood Culture - Preliminary
Blood/Venous No Growth in 24 hours- Final report to follow
07/04/25 16:50 Blood Culture - Preliminary
Blood/Venous No Growth in 24 hours- Final report to follow
Imaging:
07/04/2025 CT abdomen/pelvis with contrast: CT findings compatible with diverticulitis involving the sigmoid colon. There is an irregular extraluminal collection posterior and superior to the sigmoid colon, containing air, small amount of fluid, and
soft tissue, compatible with extraluminal abscess/phlegmon. This has increased since previous examination, but does not contain a well-defined drainable fluid collection. No evidence for free intraperitoneal air. There is expansile thrombus
involving the left portal vein which is new from prior CT examination of June 21, 2025. Interval increase in dilation of the left renal pelvis and ureter, likely due to inflammatory changes adjacent to the mid to distal left ureter for
diverticulitis.
Care Review
Plan reviewed with: Physician (Dr. ruffin)
--- NOTE | 2025-07-06 12:52 | W.PN.CRS1 ---
Today's Communication / Plan
-
Continue ABX/LRD
Assessment/Plan
-
64-year-old male with sigmoid diverticulitis and associated abscess with recent admission to [facility] 2 weeks ago status post oral antibiotics, presents with worsening abdominal pain, fevers, and chills at home and found to have recurrent
sigmoid diverticulitis with abscess and a portal vein thrombosis
AFVSS
No leukocytosis
Plan:
-Continue IV antibiotics
-ABX as per ID
-Analgesics prn
-Maintained on heparin gtt due to new portal vein thrombosis, eventual transition to DOAC once close to DC
-Trend WBC/CRP
-Advance to low residue diet
-Will need eventual elective surgery, no plans for emergent surgery at this point. Will continue to follow for improvement
Subjective Data
Subjective Data
Date of Service: July 06, 2025
Pt seen and examined at bedside with Dr. Parikh. Teoies n/v. Passed a bm, passing flatus. Tolerating diet. Intermittent cramping discomfort with a little pain overnight, better since.
Objective Data
-
Vital Signs
Temp Pulse Resp BP Pulse Ox
97.5 F 63 16 135/72 97
07/06/25 07:00 07/06/25 07:00 07/06/25 07:00 07/06/25 07:00 07/06/25 07:00
Intake & Output
07/05/25 07/06/25 07/07/25
06:59 06:59 06:59
Intake Total 900 / 900 960 / 960
Balance 900 / 900 960 / 960
Intake:
Oral fluids 0 / 0 960 / 960
IV fluids (Total) 900 / 900
Other:
Number of approximated MODERATE 2 4
amounts of urine
Lab Results
07/06/25 08:47
07/06/25 08:47
Physical Exam
-
General: No Acute Distress and AOx3
Abdomen: Soft, Non Distended and Non Tender
Skin: Warm and Dry
[2025-07-06 15:00] VITALS: BP 118/65
[2025-07-06 16:27] LABS: APTT 118.8 Sec (23.4-35.0)
[2025-07-06] MEDS: TYLENOL 650 MG PO (17:34)
[2025-07-06] MEDS: LEVAQUIN 100 IV (20:33)
[2025-07-06] MEDS: ROXICODONE 5 MG PO (22:21)
[2025-07-06] MEDS: MELATONIN 5 MG PO (22:22)
[2025-07-06 23:05] VITALS: BP 125/70
[2025-07-06 23:18] LABS: APTT 123.5 Sec (23.4-35.0)
[2025-07-07] MEDS: FLAGYL 500 MG 100 IV (04:52)
[2025-07-07 06:45] LABS: APTT 86.7 Sec (23.4-35.0)
[2025-07-07 06:46] LABS: Hematocrit 40.5 % (39.0-52.0); Hemoglobin 13.6 g/dL (13.0-18.0); Mean Corp Hgb Conc. 33.6 g/dL (33.0-37.0); Mean Corpuscular Volume 87.9 fL (80.0-94.0); Nucleated Red Blood Cells % 0 % (-); Platelet Count 342 10^3/uL (130-400); Red Cell Dist. Width 13.0 % (11.5-14.5)
[2025-07-07 07:00] VITALS: BP 123/67
[2025-07-07 07:30] LABS: Blood Urea Nitrogen 14 mg/dl (9-20); Calcium 9.5 mg/dl (8.4-10.2); Carbon Dioxide 28 mmol/L (22-30); Chloride 102 mmol/L (98-107); Estimated Creatinine Clearance 95 ml/min; Glucose 106 mg/dl (70-99); Potassium 4.8 mmol/L (3.5-5.1); Sodium 136 mmol/L (135-145); eGFR > 60.00
[2025-07-07 07:42] LABS: C-Reactive Protein 127.60 mg/L (0.0-10.00)
--- NOTE | 2025-07-07 11:29 | W.PN.CRS1 ---
Today's Communication / Plan
-
Dispo planning
Assessment/Plan
-
64-year-old male with sigmoid diverticulitis and associated abscess with recent admission to [facility] 2 weeks ago status post oral antibiotics, presents with worsening abdominal pain, fevers, and chills at home and found to have recurrent
sigmoid diverticulitis with abscess ([id number]) and a portal vein thrombosis
AFVSS
No leukocytosis
Tolerating diet
Plan:
-ABX as per ID
-Analgesics prn
-Ok to transition to DOAC
-Continue low residue diet
-Will need eventual elective surgery, no plans for emergent surgery at this point. OP follow up arranged in one week, will follow CT scan in outpatient settings for improvement.
Ok for d/c from surgical standpoint
Subjective Data
Subjective Data
Date of Service: July 07, 2025
Pt seen and examined at bedside with Dr. Parikh. Denies n/v. Tolerating diet. Ambulating in room. Still with some residual abdominal discomfort but not severe, improved.
Objective Data
-
Vital Signs
Temp Pulse Resp BP Pulse Ox
98.1 F 58 16 123/67 97
07/07/25 07:00 07/07/25 07:00 07/07/25 07:00 07/07/25 07:00 07/07/25 07:00
Intake & Output
07/06/25 07/07/25 07/08/25
06:59 06:59 06:59
Intake Total 960 / 960 3 3
Balance 960 / 960 3 3
Intake:
Oral fluids 960 / 960
IV fluids (Total)
Other:
Number of approximated MODERATE 4 1
amounts of urine
Lab Results
07/07/25 06:21
07/07/25 06:21
Physical Exam
-
General: No Acute Distress and AOx3
Abdomen: Soft, Non Distended and Non Tender
Skin: Warm and Dry
[2025-07-07] MEDS: LEVAQUIN 500 MG PO (11:54)
[2025-07-07] MEDS: ELIQUIS 5 MG PO (11:54)
--- NOTE | 2025-07-07 14:19 | W.PN.HOSP.TC ---
Today's Communication/Plan
-
Discharge planning today
Assessment / Plan
Assessment / Plan
Physical exam:
General: No acute distress
HEENT: Normocephalic, Atraumatic and Moist Mucous Membranes
Respiratory: Clear to Auscultation; Negative Wheezes, Rales or Rhonchi
Cardiac: Regular Rhythm and S1/S2
GI: Soft, non tender and Nondistended
Musculoskeletal: No Clubbing, No Cyanosis and No Edema
Neuro: Awake, Alert and Oriented, no neurological deficit
Psych: Calm
A/P:
Persistent Diverticulitis with Abscess
-Consult Colorectal Surgery and appreciated input.
- Started on diet per colorectal surgery, low residue diet
-Stop IV fluid
-Continue IV Levaquin / Flagyl
- Add pain medications as needed
- Colorectal surgery consulted ID
- Discussed with family at bedside
07/06:
Continue current antibiotics
Continue pain
Follow-up colorectal surgery recommendations
07/07:
Discussed with colorectal surgery person and they are clear for discharge and they will reevaluate him as outpatient for elective surgery
Discussed with ID over [place] text and ID clears him for discharge today and switch to oral antibiotics
Discussed with at bedside as well
Plan to discharge later today
Portal Vein Thrombosis, likely related to ongoing inflammation
-Consulted Hematology and appreciated input
-Continue heparin drip and once close to discharge can transition to DOAC
07/06:
Continue IV heparin drip
Planning to switch to DOAC upon discharge
07/07:
Switch heparin drip to Eliquis today
Code Status: Full Code
Anticipated Discharge: Today
Subjective/Interval History
-
Date of Service: July 07, 2025
Patient feels better overall. Still requiring some pain medications here and there but overall doing well. Remains afebrile. Tolerating diet well.
Objective Data
-
Labs:
Laboratory Results
07/07/25 07/07/25
06:21 12:00
WBC 9.9
Hgb 13.6
Hct 40.5
Plt Count 342
APTT 86.7 H Cancelled
Sodium 136
Potassium 4.8
Chloride 102
Carbon Dioxide 28
BUN 14
Creatinine 0.9
Glucose 106 H
Calcium 9.5
Vital Signs:
Vital Signs
Temp Pulse Resp BP Pulse Ox
98.1 F 58 16 123/67 97
07/07/25 07:00 07/07/25 07:00 07/07/25 07:00 07/07/25 07:00 07/07/25 07:00
I&O
07/06/25 07/07/25 07/08/25
06:59 06:59 06:59
Intake Total 960 / 960 3 / 3
Balance 960 / 960 3 / 3
--- NOTE | 2025-07-07 14:25 | W.DCSUMMARY ---
Discharge Summary
Discharge Data
Date of Admission: 07/04/25
Date of Discharge: 07/07/25
Total time spent discharging patient (in min): 35
-
Pending Results: No
Hospital Course
Patient is 64 years old male with history of non-Hodgkin lymphoma status post chemo and radiation in the past, history of recent diverticulitis treated at the end of May, came into the hospital with recurring abdominal pain nausea and fever
and found to have significant diverticulitis with abscess/phlegmon. He was given IV fluids, broad-spectrum IV antibiotics. Colorectal surgery was consulted. Colorectal surgery did recommend medical management and did not feel that he required
surgical intervention at this time. His abscess is very small not amenable for any drainage. He has remained hemodynamically stable and afebrile. He has tolerated diet without any problems. Colorectal surgery today cleared for discharge. They
would like to see him as outpatient for possible elective surgery.
Patient also was found to have his left portal vein thrombosis. No evidence of cirrhosis. I reached out to GI and they recommended hematology oncology evaluation. Hematology saw the patient and he was placed on heparin drip and he tolerated that
well. Hematology recommended to switch to DOAC upon discharge. Today he is close to discharge so he is heparin drip will be switched to oral Eliquis. He would like to follow-up with his corporate accountant Dr. Mcclellan as outpatient. There is also the
information from our local corporate accountant if he wishes to reach out to them. Further hematological oncological evaluation will be pursued as outpatient.
Colorectal surgery also asked ID to evaluate him and ID mention that it was not clear whether this was failure of prior antibiotics from an antibiotic resistant or rather low drug levels from oral therapy and they have recommended levofloxacin with
metronidazole. I reached out to ID today and they are recommended to switch to oral antibiotic therapy and he can be discharged from their standpoint today. He will be discharged in supervision today.
Discharge duration: 35 minutes
Discharge Plan
-
Patient Disposition: Home (Routine Discharge)
Discharge Diagnosis/Procedures: Recurrent versus persistent diverticulitis. Left portal vein thrombosis
Diet: Low Fiber
Activity: As tolerated
Blood Work: Please PCP to order CBC, BMP within 1 week
Activity Restrictions/Additional Instructions:
Call Dr Guerin's office or present to the ED for worsening abdominal pain or fevers
Referrals:
Rodolfo Guerin MD [Active, ColoRectal] - in one to two weeks
Edwin Ontiveros MD [Active, Hematology / Oncology] - in one to two weeks
Jarvis Li MD [Family Provider, Family Practice] - in less than 1 week
Prescriptions:
New
Eliquis 5 mg Tablet
5 mg PO BID Qty: 60 0RF
metronidazole 500 mg Tablet
500 mg PO Q8 10 Days Qty: 30 0RF
levofloxacin 500 mg Tablet
500 mg PO DAILY 10 Days Qty: 10 0RF
oxycodone 5 mg Tablet
5 mg PO Q4HPRN PRN (Reason: severe pain) Qty: 14 0RF
Discharge Orders:
Discharge Patient (As Directed); Ordered 07/07/25
Ordered By: Hany Gibson
Discharge Date and Time
Print Language: MALIAN
--- NOTE | 2025-07-07 14:46 | CM ---
Met with patient at bedside; reported his will provide transport home
As Attending requested, provided Eliquis 30 free trial coupon
Plan: Discharge to home today, no needs
[2025-07-07 15:00] VITALS: BP 126/75
== END 2025-07-07 16:27 | disposition home or self-care (01) | DRG 391 ==
LOC: 4 WEST ACU 20:48
PROVIDERS: Physician Assistant; Physician Assistant Medical; ADMITTING PHYSICIAN Internal Medicine; ATTENDING PHYSICIAN Hospitalist; EMERGENCY PHYSICIAN Emergency Medicine; FAMILY PHYSICIAN Family Medicine; OTHER PHYSICIAN Internal Medicine Hematology & Oncology; OTHER PHYSICIAN Internal Medicine Infectious Disease; OTHER PHYSICIAN Surgery
DX: K57.20 Diverticulitis of large intestine with perforation and abscess without bleeding (principal); I81 Portal vein thrombosis; C85.9A Non-Hodgkin lymphoma, unspecified, in remission; Z92.21 Personal history of antineoplastic chemotherapy; Z92.3 Personal history of irradiation; K59.00 Constipation, unspecified
CPT/HCPCS: 74177; 80048; 80053; 83605; 83690; 85025; 85027; 85730; 86140; 87040; 96361; 96365; 96367; 96375; 99291; Q9967

== ENCOUNTER → 2025-07-13 08:59 | Outpatient (REF) | payer OTHER, SELFPAY | LOC: RAD 08:59 | PROVIDERS: ATTENDING PHYSICIAN Surgery; FAMILY PHYSICIAN Family Medicine | DX: K57.20 Diverticulitis of large intestine with perforation and abscess without bleeding (principal) | CPT/HCPCS: 74177; Q9967 ==

== ENCOUNTER 2025-09-06 05:48 | Day surgery (SDC) | payer OTHER, SELFPAY ==
[2025-08-26 08:57] LABS: Hematocrit 39.1 % (39.0-52.0); Hemoglobin 13.1 g/dL (13.0-18.0); Mean Corp Hgb Conc. 33.5 g/dL (33.0-37.0); Mean Corpuscular Volume 90.1 fL (80.0-94.0); Platelet Count 325 10^3/uL (130-400); Red Cell Dist. Width 14.2 % (11.5-14.5)
[2025-08-26 09:07] LABS: INR 1.28; PT 16.2 Sec (11.4-14.6)
[2025-08-26 09:31] LABS: APTT 36.9 Sec (23.4-35.0)
[2025-08-26 09:45] LABS: ALT (SGPT) 77 U/L (0-50); AST (SGOT) 74 U/L (17-59); Albumin 4.1 g/dl (3.5-5.0); Alkaline Phosphatase 70 U/L (38-126); Blood Urea Nitrogen 17 mg/dl (9-20); Calcium 9.3 mg/dl (8.4-10.2); Carbon Dioxide 29 mmol/L (22-30); Chloride 105 mmol/L (98-107); Glucose 93 mg/dl (70-99); Potassium 4.7 mmol/L (3.5-5.1); Sodium 137 mmol/L (135-145); Total Protein 7.6 g/dl (6.3-8.2); eGFR > 60.00
[2025-08-26 10:33] LABS: Glycohemoglobin (HgbA1c) 5.5 % (4.0-5.9)
[2025-08-26 13:59] VITALS: BMI 26.8
[2025-09-06 06:20] VITALS: BP 144/83
[2025-09-06 06:37] VITALS: BMI 26.8
[2025-09-06] MEDS: TYLENOL 1000 MG PO (06:42)
[2025-09-06] MEDS: RELISTOR 12 MG SC (06:43)
[2025-09-06] MEDS: HEPARIN 5000 UNITS SC (06:43)
[2025-09-06] MEDS: LYRICA 150 MG PO (06:43)
[2025-09-06] MEDS: NORMOSOL-R/PLASMALYTE-A 1000 IV (06:50)
== END 2025-09-06 07:08 | disposition home or self-care (01) ==
LOC: SDS 05:48
PROVIDERS: ATTENDING PHYSICIAN Surgery; FAMILY PHYSICIAN Family Medicine
DX: K57.20 Diverticulitis of large intestine with perforation and abscess without bleeding (principal); Z53.8 Procedure and treatment not carried out for other reasons
CPT/HCPCS: 44204; 71046; 80053; 83036; 85027; 85610; 85730; 86850; 86900; 86901; 93005

== ENCOUNTER 2025-09-18 05:55 | Inpatient (IN) | payer OTHER, SELFPAY ==
[2025-09-18] VITALS (12 sets, daily range): BP systolic 102–140; BP diastolic 48–77; BMI 26.9
[2025-09-18] MEDS: HEPARIN 5000 UNITS SC (06:24)
[2025-09-18] MEDS: TYLENOL 1000 MG PO ×3 (06:25→23:42)
[2025-09-18] MEDS: RELISTOR 12 MG SC (06:25)
[2025-09-18] MEDS: LYRICA 150 MG PO (06:25)
[2025-09-18] MEDS: NORMOSOL-R/PLASMALYTE-A 1000 IV ×2 (06:39→17:32)
[2025-09-18] MEDS: CELEBREX 200 MG PO (06:43)
--- NOTE | 2025-09-18 13:31 | W.IMMPOSTOP ---
Addendum entered and electronically signed by Rodolfo Guerin MD 09/20/25 11:22:
updated spouse over the phone, parents in person; I saw patient later that day and discussed in person
Original Note:
Surgical Immed Post Op Note
-
Primary Surgeon: Rodolfo Guerin MD
Assisting Surgeon: SHARAD Lora
Pre-op Diagnosis: Diverticulitis, portal vein thrombosis
Post-op Diagnosis: Diverticulitis, portal vein thrombosis
Procedure Performed: Robotic sigmoidectomy, lysis of adhesions greater than 45 minutes, flexible sigmoidoscopy, mesenteric angiography with ICG, laparoscopic TAP block
Anesthesia Type: General
Specimen / Cultures: Rectosigmoid colon
Estimated Blood Loss: 50 mL
IVF: 2.5 L
UOP: 160 mL
Complications: None
Operative Findings: Entered with Veress; placed 3 ports with assist port and made Pfannenstiel incision; performed lysis of adhesions in the RLQ and then placed RLQ port; additional adhesions to the anterior abdominal wall from the omentum;
substantially thickened distal sigmoid colon with thickening extending up to the mid sigmoid; significant fibrosis related to prior abscess cavities in the superior presacral space and left upper pelvis; performed lateral to medial dissection and
identified the left ureter; performed medial to lateral dissection and identified left ureter; mobilized the proximal rectum; took down fibrosis in the proximal presacral space and identified a residual small cyst without any pus; divided the ZORA
and placed extra stitch on the stump for hemostasis; mobilized the mesentery from the retroperitoneum up to the proximal descending colon; took down the fibrosis along the left pelvis, keeping the left ureter safe; performed flexible sigmoidoscopy
and passed EEA sizers; divided at about 15 cm from the anal verge along the proximal rectum; divided across the proximal sigmoid and placed the anvil; there was a large diverticula getting in the way of the staple line, which was cinched to the post
with a 2-0 Vicryl; mobilized the mesentery and the lateral attachments up to the splenic flexure; placed Tisseel at the ZORA stump; performed EEA stapled anastomosis, donuts intact, negative leak test, anastomosis intact and flexible sigmoidoscopy;
oversewed the staple line anteriorly; laparoscopic TAP block and closed in the usual fashion
Dispo: Clear liquids and labs in recovery; okay for regular diet on the floor; keep Abel until tomorrow
[2025-09-18 14:02] LABS: Hematocrit 40.7 % (39.0-52.0); Hemoglobin 13.6 g/dL (13.0-18.0); Mean Corp Hgb Conc. 33.4 g/dL (33.0-37.0); Mean Corpuscular Volume 93.1 fL (80.0-94.0); Platelet Count 279 10^3/uL (130-400); Red Cell Dist. Width 14.6 % (11.5-14.5)
--- NOTE | 2025-09-18 14:08 | OR.RPT ---
Operative Report
Operative Report
DATE OF OPERATION: 09/18/2025
SURGEON: Rodolfo Guerin MD
PREOPERATIVE DIAGNOSIS: Chronic diverticulitis with abscess, portal vein thrombosis
POSTOPERATIVE DIAGNOSIS: Chronic diverticulitis, portal vein thrombosis
OPERATION: Robotic sigmoidectomy, adhesiolysis greater than 45 minutes, flexible sigmoidoscopy, mesenteric angiography with ICG, laparoscopic TAP block
ASSISTANTS:
1. SHARAD Lora
ANESTHESIA: General
ESTIMATED BLOOD LOSS: 50 mL
IVF: 2.5 L
URINE OUTPUT: 160 mL
FINDINGS:
1. Multiple adhesions from the omentum to the anterior abdominal wall along the left lateral abdomen and in the right lower quadrant
2. Significant thickening of the distal sigmoid colon associated with substantial fibrosis along the superior presacral space and the left superior pelvis
3. Performed EEA stapled anastomosis from proximal sigmoid colon to proximal rectum at about 15 cm from the anal verge; donuts intact x 2, negative leak test, anastomosis intact on flexible sigmoidoscopy
SPECIMENS:
1. Rectosigmoid colon
DRAINS: None
COMPLICATIONS: No immediate complications.
INDICATIONS: The patient is a 64-year-old male who initially presented for acute diverticulitis with abscess and was found to have a portal vein thrombosis. He was started on Eliquis. Repeat CT scans showed improved but persistent abscesses.
With prolonged antibiotics, he ultimately completely recovered. Due to the recurrent nature of the diverticulitis associated with persistent abscess and portal vein thrombosis, I recommended proceeding with surgery. The operation was discussed
with the patient in detail, including the risks, benefits and alternatives. Risks described included, but not limited to, bleeding, infection, anastomotic leak, damage to nearby structures (i.e.- ureter, bowel, solid organs), incisional hernia, need
for ostomy creation, conversion to open, recurrent diverticulitis and anesthetic risks, including but not limited to IN, stroke, DVT/PE, respiratory failure and other organ failure. The patient understood and agreed to proceed.
PROCEDURE IN DETAIL: The patient was taken to the operating room and placed on the operating table in supine position. Sequential compression devices were placed bilaterally. General anesthesia was induced and the patient was intubated without
complication. The patient was placed in lithotomy position with both arms tucked. Urology performed a cystoscopy, placed bilateral ureteral stents, injected each ureter with 2.5mL of ICG and placed a Starr. The abdomen was shaved, prepped and
draped in a sterile fashion. A time-out was performed verifying the correct patient, procedure, operative site, positioning, and special equipment. Anesthesia placed an orogastric tube. Preoperative antibiotics were given. A marking pen was used
to sahil out the midline.
An 8 mm incision at Thomas's point was made with an 11 blade scalpel. A Veress needle was used to gain abdominal access. After 3 clicks, the insufflation was connected to the Veress needle and the opening pressure was noted to be less than 8 mmHg.
The abdomen was insufflated to a pressure of 12 mmHg. An 8 mm robotic trocar was inserted. The robotic camera was advanced and intra-abdominal placement was confirmed. The abdomen was examined. No injuries were noted from port entry or from the
Veress needle. There were multiple adhesions from the omentum to the left lateral anterior abdomen and left lower quadrant. Additionally, there were adhesions in the right lower quadrant, precluding the ability to place the right lower quadrant
port. The other two 8mm robotic ports were placed under direct visualization in a diagonal fashion from Thomas's point to the right lower quadrant, as well as an 8mm assist port in the right lateral mid abdomen, taking care to avoid injury to the
right epigastric vessels. The left upper quadrant port was changed to the air seal port.
A 4 cm Pfannenstiel incision was created 2 fingerbreadths above the pubic symphysis. This was carried down to the anterior fascia with electrocautery and hemostasis was assured. The fascia was incised to just beyond the length of the skin
incision. The fascia was grasped with Mikaela's and elevated. The adhesions to the anterior fascia were taken down bluntly from the rectus abdominis muscle and the midline attachment was taken down with electrocautery. This was performed both
superiorly and inferiorly to our incision. The rectus was split along the midline, first scoring the linea alba with electrocautery, then bluntly with a Elizabet clamp to reveal the peritoneum, which was grasped and elevated. The peritoneum was
incised with Metzenbaum scissors, taking care to avoid injury to intraperitoneal structures. The peritoneum was incised cranially and caudally to the greatest extent that our incision would allow, taking care to avoid injury to the bladder. A
small Jesus with port cap was placed and a robotic 12 mm port was placed through the port cap. The patient was placed in 28 degrees trendelenburg (neutral was about 10 degrees) and 10 degrees [id number]. The robot was docked from the
patient's left side. The camera, scissors and bipolar instruments were inserted under direct visualization. Using a combination of sharp and blunt dissection, I freed the adhesions in the right lower quadrant from the omentum and the ascending
colon. The right lower quadrant 8 mm port was placed under direct visualization. The instruments were adjusted and the tip-up was introduced.
Using sharp and blunt dissection, I freed adhesions from the omentum to the left lower quadrant and up the left lateral abdomen. There was significant thickening noted in the distal sigmoid colon, which was densely adherent to the left lower
abdomen and left pelvic brim. I placed a 2-0 Vicryl stitch in an epiploica to sahil the margin of healthy colon, which was in the proximal sigmoid colon. There were multiple adhesions from the sigmoid colon to the left lower quadrant, which were
taken down meticulously. I continued this lateral to medial mobilization up to the mid-descending colon. There was dense fibrosis noted just inferior to the left pelvic brim. I was able to identify the left ureter using firefly and kept it safe
from my dissection. Due to the amount of fibrosis, the left pelvis was abnormally medialized. I scored the peritoneum along the left lateral rectum, but I was unable to identify the usual presacral plane. I switched to a medial to lateral
approach. I scored the peritoneum overlying the sacral promontory and entered the presacral space. I developed this plane inferior to beyond the sacral promontory. I attempted to develop this space superiorly, but there was dense fibrosis within
the presacral space above the sacral promontory, likely due to the abscess that was noted on the CT scan. This part of the surgery was particularly difficult due to the amount of fibrosis and altered anatomy. I was able to identify the iliac
vessels and the ureters with firefly, keeping them safe from the dissection. I was able to connect my dissection planes along the presacral space superiorly. I identified the ZORA. I circumferentially dissected this, taking care to avoid injury to
the hypogastric nerves. I divided this with the vessel sealer with a 1 to 2 cm stump. There was a slight minimal but pulsatile ooze in the middle of the stump. I placed a 2-0 Vicryl stitch in a [id number] fashion to control this. The stump
was now hemostatic. I continued a medial to lateral dissection, mobilizing the mesentery up to the proximal descending colon, taking care to avoid injury to the left ureter and kidney. With all of the vital structures clearly identified, I divided
through the fibrosis with electrocautery. There was a tiny cyst noted, likely representing the collapsed abscess cavity. There was no pus within the cavity. I came through the fibrosis along the left lateral aspect of the rectosigmoid, keeping
the left ureter and iliac vessels safe. I elevated the rectosigmoid and developed the presacral space posteriorly down to the mid-rectum. I mobilized the proximal rectum bilaterally using the vessel sealer, taking this down to a few centimeters
above the anterior peritoneal reflection.
I performed a flexible sigmoidoscopy. The lubricated sigmoidoscope was inserted transanally and advanced under direct visualization. I advanced to about 20 cm from the anal verge. There was fibrinous exudate noted in the rectosigmoid junction
without substantial erythema to the mucosa. Below 15 cm from the anal verge, the mucosa was healthy. There was minimal stool, which was irrigated and suctioned. I passed up EEA sizers in progressively increasing size to ensure adequate
circumference and reach. These passed easily to about 15 cm from the anal verge. I went back to the console. I retracted the rectosigmoid anteriorly and created a tunnel through the mesorectum. I ligated it with the vessel sealer, ensuring
hemostasis at the superior rectal artery. I stapled and divided at this point with the 60 mm robotic stapler using the blue load.
For my proximal transection point, my initial tag was at an appropriate spot for division on healthy colon, which was located in the proximal sigmoid colon. I elevated the colon at this point with my tip up grasper. I fanned out the mesentery from
the divided ZORA stump. I ligated the mesentery up to this point, taking care to avoid injury to the left ureter. Anesthesia injected ICG and perfusion was confirmed to my proposed transection point.
I elected to proceed with an intracorporeal end-to-end stapled anastomosis with EEA stapler. A colotomy in the devascularized segment of colon was created using the robotic scissors at a point distal to my proposed proximal transection point. The
anvil with a long Prolene suture attached at the tip was carefully passed through the colotomy and advanced proximally up the descending colon, with the long Prolene remaining outside of the colon. The colotomy was closed around the Prolene stitch
using a V-Loc running stitch. The robotic stapler with a blue load was used to staple and divide the descending colon at the proposed transection point where adequate perfusion was noted on firefly. The specimen was placed to the side. The
Prolene attached to the anvil was grasped and pulled through the staple line after removing a few rolando. I grasped and elevated the anvil and cleaned up the staple line from intervening mesentery and fat. There was a large diverticula noted that
would interfere with the staple line. This was pulled into the post using a 2-0 Vicryl in a pursestring fashion. The specimen was removed through the Pfannenstiel port and passed off for pathology.
I checked the reach of the proposed anastomosis once more and it was not quite adequate. I mobilized the lateral attachments up to the splenic flexure. I elevated the mesentery and mobilized it from the retroperitoneum up to the level of the
splenic flexure. I divided the base of the mesentery up to the IMV. I checked the reach and it was plenty adequate. The operative field was surveyed and hemostasis was ensured. For bleeding prophylaxis, I placed Tisseel along the ZORA stump.
Sizers were passed up the rectum once more to ensure adequate circumference and length. The EEA stapler was passed transanally to the distal staple line. The pin was extended and was connected with the anvil. After ensuring there was no twist to
the mesentery and there was no tension, the EEA stapler was then closed for 1 minute and then fired. Both donuts were intact. A leak test was performed by filling the pelvis with saline, occluding the proximal lumen and insufflating with the
flexible sigmoidoscope. There was no evidence of leak from the anastomosis. Endoscopically, the anastomosis was intact without evidence of bleeding. The colorectum was desufflated and the flexible sigmoidoscope removed. The anterior aspect of the
anastomosis was oversewn with interrupted Lemberts using 2-0 Vicryl's.
The robotic instruments were removed and the robot was undocked. Using laparoscopic visualization, a TAP block was performed using a total of 30 mL of 0.25% Marcaine with epinephrine mixed with dexamethasone and injecting in the transverse
abdominis plane bilaterally. The remaining ports were removed under direct visualization and no bleeding was noted. The Pfannenstiel incision was closed in layers. First, the peritoneum was closed with a running 0-Vicryl stitch. Then, the
anterior fascia was closed using a #1 Stratafix suture. The incisions were irrigated. The remaining 30 cc of 0.25% Marcaine with epinephrine mixed with dexamethasone were injected around the incisions. The incisions were closed with running
subcuticular 4-0 Monocryl and dressed with Dermabond.
At this point, the procedure was complete. The patient was awoken and extubated without complication. The right stent was removed, and the left stent and Starr were left in place. All needle, sponge and instrument counts were reported as correct.
The patient tolerated the procedure well and was transferred to the recovery room in stable condition with the starr in place.
DICTATED BY: Rodolfo Guerin MD
[2025-09-18 14:14] LABS: Blood Urea Nitrogen 13 mg/dl (9-20); Calcium 8.1 mg/dl (8.4-10.2); Carbon Dioxide 17 mmol/L (22-30); Glucose 180 mg/dl (70-99); Potassium 4.2 mmol/L (3.5-5.1)
[2025-09-18 14:22] LABS: Chloride 101 mmol/L (98-107); Estimated Creatinine Clearance 83 ml/min; Sodium 133 mmol/L (135-145); eGFR > 60.00
[2025-09-18 14:30] LABS: Nucleated Red Blood Cells % 0 % (-)
[2025-09-18] MEDS: TORADOL 15 MG IV ×2 (17:31→23:41)
[2025-09-19 03:11] VITALS: BP 110/53
[2025-09-19] MEDS: TORADOL 15 MG IV (06:03)
[2025-09-19] MEDS: TYLENOL 1000 MG PO (06:04)
[2025-09-19 06:35] LABS: Hematocrit 37.6 % (39.0-52.0); Hemoglobin 12.8 g/dL (13.0-18.0); Mean Corp Hgb Conc. 34.0 g/dL (33.0-37.0); Mean Corpuscular Volume 90.0 fL (80.0-94.0); Platelet Count 272 10^3/uL (130-400); Red Cell Dist. Width 15.0 % (11.5-14.5)
[2025-09-19 06:51] LABS: ALT (SGPT) 68 U/L (0-50); AST (SGOT) 64 U/L (17-59); Albumin 3.5 g/dl (3.5-5.0); Alkaline Phosphatase 60 U/L (38-126); Blood Urea Nitrogen 17 mg/dl (9-20); Calcium 8.7 mg/dl (8.4-10.2); Carbon Dioxide 25 mmol/L (22-30); Chloride 104 mmol/L (98-107); Estimated Creatinine Clearance 83 ml/min; Glucose 123 mg/dl (70-99); Potassium 5.0 mmol/L (3.5-5.1); Sodium 134 mmol/L (135-145); Total Protein 6.5 g/dl (6.3-8.2); eGFR > 60.00
[2025-09-19 07:20] VITALS: BP 126/67
[2025-09-19] MEDS: RELISTOR 12 MG SC (07:57)
[2025-09-19] MEDS: NORMOSOL-R/PLASMALYTE-A IV (08:05)
[2025-09-19 08:45] LABS: Nucleated Red Blood Cells % 0 % (-)
--- NOTE | 2025-09-19 09:49 | W.PN.CRS1 ---
Today's Communication / Plan
-
Out of bed.
DC Abel.
Discharge.
Assessment/Plan
-
POD 1.
1. Tolerating regular diet with flatus.
2. Stent removed at bedside. Abel to come out.
3. Out of bed.
4. Incisions look good.
5. WBC elevated at 22.8 with normal vitals. In my experience, it is not uncommon to have a an elevated white count after these types of surgeries postop day 1. This typically improves over the following days. I suspect this is simply related to
the stress of surgery. Patient made aware. The patient is anxious to be discharged. I believe this is reasonable. He will call if any fevers or other significant issues.
Subjective Data
Procedure
Robotic sigmoidectomy, lysis of adhesions greater than 45 minutes, flexible sigmoidoscopy, mesenteric angiography with ICG, laparoscopic TAP block on 09/18/25
Subjective Data
Date of Service: September 19, 2025
Patient without significant complaints. Admits to mild incisional discomfort. Tolerating regular diet with flatus.
Objective Data
-
Vital Signs
Temp Pulse Resp BP Pulse Ox
98.6 F 77 16 126/67 99
09/19/25 07:20 09/19/25 07:20 09/19/25 07:20 09/19/25 07:20 09/19/25 07:20
Intake & Output
09/18/25 09/19/25 09/20/25
06:59 06:59 06:59
Intake Total 555 / 555
Output Total 1600 / 1600 100 / 100
Balance -1045 / -1045 -100 / -100
Intake:
Oral fluids 480 / 480
IV fluids (Total) 75 / 75
normosol 75 / 75
Output:
Urine, Abel 1600 / 1600 100 / 100
Lab Results
09/19/25 05:44
09/19/25 05:44
Physical Exam
-
General: No Acute Distress
Chest: Clear
Cardiovascular: Regular Rate & Rhythm
Abdomen: Soft, Non Distended and Tender (mild incisional)
Skin: Warm, Dry and Good Color
Incision: Clear, Dry, Intact and No Skin Erythema
--- NOTE | 2025-09-19 09:54 | W.DS.TRANS ---
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
-
Discharge Instructions:
Sleep Apnea Risk Low
Discharge Diagnosis/Procedures Diverticulitis
Diet Regular,No restrictions
Activity No strenuous activity
Additional Activity No heavy lifting greater than 10 pounds for 4
weeks. Okay for walks and going up stairs, but
no strenuous activity for 4 weeks.
Driving Restrictions No driving while taking narcotic pain medicine.
N
Bathing Restrictions No bathing or submersion of incisions for 2
weeks.
Instructions:
Stand-Alone Forms:
Changes to Home Medications: Yes
Discharge Medications:
DC Medications w/original date entered in [facility]
apixaban 5 mg tablet (Eliquis) 5 mg PO BID Blood Clot Prevention/Tx 09/07/25
oxycodone 5 mg tablet 5 mg PO Q6H PRN Pain #14 tabs 09/18/25
Home Medication Changes
apixaban 5 mg tablet (Eliquis) 5 mg PO BID Blood Clot Prevention/Tx 09/07/25
oxycodone 5 mg tablet 5 mg PO Q6H PRN Pain #14 tabs 09/18/25
Pending Results: Yes (surgical pathology)
--- NOTE | 2025-09-19 10:20 | CM ---
patient seen at bedside with
IA completed
discharge today - IMM n/a
Lives with in 2 story home, 2 matty, flight to bed/bath, powder room 1st floor
PLOF: Independent
denies VN/Rehab
PCP: Jarvis Mcgraw
Pharmacy: [facility]
PLAN: home no needs
to transport
--- NOTE | 2025-09-19 10:57 | PTCARENOTE ---
Order placed to dc starr catheter, catheter removed without issues, patient tolerated well. Able to void immediately after after dc. Instructions reviewed with patient and spouse at bedside.
== END 2025-09-19 11:01 | disposition home or self-care (01) | DRG 329 ==
LOC: 2 SOUTH 05:55
PROVIDERS: ADMITTING PHYSICIAN Surgery
PROC: 0DBN4ZZ Excision of Sigmoid Colon, Percutaneous Endoscopic Approach (ICD-10-PCS; 2025-09-18)
PROC: 0DNU4ZZ Release Omentum, Percutaneous Endoscopic Approach (ICD-10-PCS; 2025-09-18)
DX: K57.20 Diverticulitis of large intestine with perforation and abscess without bleeding (principal); I81 Portal vein thrombosis; K66.0 Peritoneal adhesions (postprocedural) (postinfection); Z79.2 Long term (current) use of antibiotics
CPT/HCPCS: 80048; 80053; 85025; 88307; C9250